=== PATIENT | male | born 1955 | race African-American/Black ===

== ENCOUNTER → 2019-06-27 | Outpatient (CLI) | payer BC | LOC: ULTRA 08:02 | DX: I70.203 Unspecified atherosclerosis of native arteries of extremities, bilateral legs (principal) ==

== ENCOUNTER → 2019-07-03 | Outpatient (CLI) | payer BC | LOC: SJCVCIMAG 09:41 | DX: M79.604 Pain in right leg (principal); M79.605 Pain in left leg; I73.9 Peripheral vascular disease, unspecified ==

== ENCOUNTER 2019-07-10 08:39 | Emergency (ER) | payer BC ==
[~2019-07-10] VITALS: Ht 180.3 cm; Wt 115.2 kg
[~2019-07-10 08:39] MED LIST: CYMBALTA60 MG PO; FLEXERIL PO; GRALISE600 MG PO; LISINOPRIL2.5 MG PO; PROAIR HFA8.5 GM INH; TRAZODONE 150150 M1 PO; WELLBUTRIN 100100 MG PO
[2019-07-10 08:47] VITALS: BP 120/68
--- NOTE | 2019-07-10 08:50 | NUR ---
PT PLACED ON 2L NC- SATS MID 90'S
[2019-07-10] MEDS ORDERED: EZALLOR SPRINKL10 MG PO (08:54)
[2019-07-10 09:20] LABS: URINE BILIRUBIN NEGATIVE (Negative); URINE BLOOD NEGATIVE (Negative); URINE CLARITY CLEAR; URINE COLOR YELLOW; URINE GLUCOSE-RANDOM* NEGATIVE (Negative); URINE KETONES NEGATIVE (Negative); URINE LEUKOCYTES-REFLEX NEGATIVE (Negative); URINE NITRITE-REFLEX NEGATIVE (Negative); URINE PROTEIN (DIPSTICK) NEGATIVE (Negative); URINE SPECIFIC GRAVITY 1.015 (1.005-1.035); URINE UROBILINOGEN 0.2 E.U./dl (0.2-1.0)
[2019-07-10 10:10] LABS: ABSOLUTE NEUTROPHILS 3.3 thou/uL (1.4-8.2); BASOPHILS 0.7 % (0.0-2.0); EOSINOPHILS 1.5 % (0.0-3.0); HEMATOCRIT 43.7 % (42.0-52.0); HEMOGLOBIN 14.7 gm/dL (14.0-18.0); LYMPHOCYTES 34.7 % (24.0-44.0); MCH 28.2 pg (26.0-34.0); MCHC 33.6 g/dL (28.0-37.0); MCV 84.2 fL (80.0-100.0); MONOCYTES 7.7 % (1.0-8.0); PLATELET COUNT 174 thou/uL (150-400); POLYS 55.4 % (36.0-66.0); RDW 15.6 % (10.5-14.5); WBC 5.9 thou/uL (4.0-11.0)
[2019-07-10 10:18] LABS: CALCIUM 8.8 mg/dL (8.5-10.1); CREATININE 1.1 mg/dL (0.7-1.3); POTASSIUM 4.4 mmol/L (3.5-5.1)
[2019-07-10 10:46] VITALS: BP 136/71
[2019-07-10 10:50] LABS: CALCIUM 8.5 mg/dL (8.5-10.1); CREATININE 1.1 mg/dL (0.7-1.3); POTASSIUM 4.3 mmol/L (3.5-5.1)
--- NOTE | 2019-07-10 11:05 | NUR ---
WAITING ON REPEAT BMP PRIOR TO CALLING REPORT
[2019-07-10 11:49] LABS: CALCIUM 8.9 mg/dL (8.5-10.1); CREATININE 1.1 mg/dL (0.7-1.3); POTASSIUM 4.2 mmol/L (3.5-5.1)
[2019-07-10 12:27] VITALS: BP 121/81
--- NOTE | 2019-07-10 12:34 | EKG ---
[facility] [place] [address] ELECTROCARDIOGRAM REPORT Name: SUNG PEARCE Room #: 170-9 ADM IN M.R.#: [id number] Admission: 07/10/19 Attend Phys: Kaila Mays MD Discharge: Date of : 57 Report #: [id number] THIS REPORT FOR: cc: Rafiq Walker MD, Michael D. MD Lammoglia, Francisco J. MD ~ THIS REPORT FOR: //name// [facility] ED Test Date: 2019-07-10 Test Time: 09:16:36 Pat Name: SUNG PEARCE Department: Room: 170 Gender: M Fish Agent: FREDDIE : 1955 Requested By: Ernestina Cespedes Order Number: [id number] MD: Angelo Markham Measurements Intervals [place] Rate: 97 P: 31 NE: 158 QRS: 12 QRSD: 79 T: QT: 329 QTc: 418 Interpretive Statements Sinus rhythm Nonspecific ST-T wave changes No previous ECG available for comparison Electronically Signed On 07-10-2019 12:15:20 CLASSIFICATIONS OFFICER CC/CM by Angelo Markham [email or web address] <ELECTRONICALLY SIGNED> By: Angelo Markham MD 07/10/19 1215 5 5 Angelo Markham MD /EPI
== END 2019-07-10 12:45 | disposition home or self-care (01) ==
LOC: ER 08:39 → EROBS 10:16
PROVIDERS: Emergency Medicine Emergency Medical Services; Hospitalist; Nurse Practitioner
DX: E87.1 Hypo-osmolality and hyponatremia (principal); R41.82 Altered mental status, unspecified; R41.0 Disorientation, unspecified; J45.909 Unspecified asthma, uncomplicated; E78.5 Hyperlipidemia, unspecified; I10 Essential (primary) hypertension; Z96.659 Presence of unspecified artificial knee joint; Z88.6 Allergy status to analgesic agent

== ENCOUNTER → 2019-08-02 | Outpatient (CLI) | payer BC ==
[~2019-08-02] VITALS: Ht 177.8 cm; Wt 114.3 kg
[~2019-08-02] MED LIST changes: +EZALLOR SPRINKL10 MG PO
[2019-08-02 07:39] VITALS: BP 128/79
[2019-08-02 08:01] LABS: HEMATOCRIT 44.5 % (42.0-52.0); HEMOGLOBIN 14.8 gm/dL (14.0-18.0); MCHC 33.3 g/dL (28.0-37.0); MCV 84.1 fL (80.0-100.0); RBC 5.29 mil/uL (4.50-6.00); RDW 15.8 % (10.5-14.5); WBC 5.5 thou/uL (4.0-11.0)
[2019-08-02 08:09] LABS: CALCIUM 8.9 mg/dL (8.5-10.1); CREATININE 1.3 mg/dL (0.7-1.3); POTASSIUM 4.3 mmol/L (3.5-5.1)
== END | disposition home or self-care (01) ==
LOC: CATH 07:15
PROVIDERS: Nuclear Medicine Nuclear Cardiology
DX: I73.9 Peripheral vascular disease, unspecified (principal); I70.1 Atherosclerosis of renal artery; I10 Essential (primary) hypertension; E78.5 Hyperlipidemia, unspecified; J45.909 Unspecified asthma, uncomplicated; G47.33 Obstructive sleep apnea (adult) (pediatric); Z98.890 Other specified postprocedural states; Z79.899 Other long term (current) drug therapy; Z96.653 Presence of artificial knee joint, bilateral; Z88.8 Allergy status to other drugs, medicaments and biological substances

== ENCOUNTER 2019-08-13 11:49 | Outpatient (CLI) | payer BC ==
[~2019-08-13] VITALS: Ht 177.8 cm; Wt 119.7 kg
[2019-08-13] VITALS (12 sets, daily range): BP systolic 100–146; BP diastolic 56–86
[2019-08-13 12:39] LABS: CALCIUM 9.4 mg/dL (8.5-10.1); POTASSIUM 4.4 mmol/L (3.5-5.1)
--- NOTE | 2019-08-13 17:30 | NUR ---
XAVIER STEINERIP STOPPED AT 1705, BP 117/70.
--- NOTE | 2019-08-13 17:31 | NUR ---
DR BOWLES NOTIFIED OF PT BP AND CARDENE BEING STOPPED. INSTRUCTED TO KEEP CARDENE ON EMAR AND TO RESTART IF BP GETS ABOVE 150 SYSTOLIC. TEOFILO JENSEN NOTIFIED OF THIS.
--- NOTE | 2019-08-13 19:59 | NUR ---
ASSUMMED PT CARE AT APPROXIMATELY 1730. PT A&O X4. ASSESSMENT CHARTED. FALL PRECAUTIONS IN PLACE. PT DENIES HAVING CHEST PAIN. PT DENIES HAVING SOB. PT STATED HE HAD CHRONIC PAIN. PT RECIEVED ANALGESICS. PT STATED ANALGESICS HELPED RELIEVE PAIN. POST CATH/RUN OFF. L GROIN C/D/I. NO HEMATOMA. PT VITAL SIGNS STABLE. DR. BOWLES ORDERED PT TO RESUME NICARDIPINE DRIP IF SYSTOLIC >140. INFORMED FINAL ASSEMBLY AND PACKING SUPERVISOR MANINDER DICKENS STATED SHE WOULD HOLD AN ICU BED IF PT NEEDED TO RESUME NICARDIPINE. INFORMED LAB ASSOCIATE RN, LAB ASSOCIATE RN STATED UNDERSTANDING AND DENIED HAVING FURTHER QUESTIONS. EDUCATED PT ABOUT POC. PT STATED UNDERSTANDING AND DENIED HAVING FURTHER CONCERNS.
[2019-08-14 00:21] VITALS: BP 141/67
[2019-08-14 04:45] VITALS: BP 141/77
--- NOTE | 2019-08-14 05:36 | NUR ---
ASSUMED PT CARE AT 1900. PT IS ALERT AND ORIENTED. NO SIGN OF DISTRESS NOTED IN PT. LEFT GROIN SITE IS INTACT. NO SIGN OF BRUISING OR BLEEDING NOTED. VERBALIZES PAIN. ASSESSMENT COMPLETED AND DOCUMETED. VITAL SIGNS STABLE. SCHEDULED MEDS ADMINISTERED TO PT. CONTINUE TO MONITOR PATIENT. DENIES ANY NEEDS AT THIS TIME.
[2019-08-14 06:21] LABS: CALCIUM 9.1 mg/dL (8.5-10.1); CREATININE 1.1 mg/dL (0.7-1.3); POTASSIUM 3.9 mmol/L (3.5-5.1)
[2019-08-14 06:25] LABS: HEMATOCRIT 41.4 % (42.0-52.0); HEMOGLOBIN 13.9 gm/dL (14.0-18.0); MCH 28.2 pg (26.0-34.0); MCHC 33.7 g/dL (28.0-37.0); MCV 83.7 fL (80.0-100.0); RBC 4.95 mil/uL (4.50-6.00); RDW 15.7 % (10.5-14.5); WBC 5.3 thou/uL (4.0-11.0)
[2019-08-14 07:14] VITALS: BP 108/88
[2019-08-14] MEDS ORDERED: CLOPIDOGREL75 MG PO (07:46)
[2019-08-14] MEDS ORDERED: ASPIR 8181 MG PO (07:46)
[2019-08-14 08:22] VITALS: BP 108/88
--- NOTE | 2019-08-14 09:24 | NUR ---
REPORT RECEIVED FROM MIKEY CARRASCO, REVIEWED POC WITH PT DURING BEDSIDE REPORT AT 0715. ELIZABETH, PT ASSESSED AT 0845, REVIEWED AND SIGNED ALL DISCHARGE PAPERWORK, PT VERBALIZED UNDERSTANDING, HAS PRESCRIPTIONS, TO MEET PT AT 1100 AT MAIN ENTRANCE TO GO HOME. IV REMOVED, TELEMETRY REMOVED, PT SHOWERED, HAS ALL BELONGINGS, WILL VEHICLE UPHOLSTERER PHARMACY MEDS ON THE WAY OUT. WILL MONITOR UNTIL THEN.
== END 2019-08-14 11:16 | disposition home or self-care (01) ==
LOC: CATH 11:49 → 2N 17:26 → CATH 21:11
PROVIDERS: Nuclear Medicine Nuclear Cardiology; Nurse Practitioner
DX: I70.211 Atherosclerosis of native arteries of extremities with intermittent claudication, right leg (principal); I10 Essential (primary) hypertension; J45.909 Unspecified asthma, uncomplicated; E78.5 Hyperlipidemia, unspecified; G47.33 Obstructive sleep apnea (adult) (pediatric); Z98.890 Other specified postprocedural states; Z79.899 Other long term (current) drug therapy; Z88.8 Allergy status to other drugs, medicaments and biological substances; Z96.659 Presence of unspecified artificial knee joint
CPT/HCPCS: 10081

== ENCOUNTER → 2019-09-02 | Outpatient (CLI) | payer BC ==
[~2019-09-02] MED LIST changes: +ALLEGRA ALLERG180 MG PO; +ASPIR 8181 MG PO; +ASPIRIN EC81 M1 PO; +CLOPIDOGREL75 MG PO; +CLOTRIMAZOLE-BE15 GM TOP; +DULERA 200 MCG/13 GM INH; +EFFIENT10 MG PO; +FENOFIBRATE160 MG PO; +FLOMAX0.4 MG PO; +FLONASE 0.05%50 MCG NARES; +GLUCOPHAGE XR750 MG PO; +GLUCOPHAGE1000 MG PO; +HUMALOG100 UNIT/1 SUBQ; +LANTUS SUBQ; +LIPITOR10 MG PO; +LISINOPRIL10 MG PO; +METFORMIN HCL1000 MG PO; +METOPROLOL SUCC50 MG PO; +MIRALAX17 GM PO; +NEURONTIN 400400 M1 PO; +NORCO 5-325 TA1 EAC1 PO; +OLANZAPINE10 M1 PO; +ROSUVASTATIN CA10 MG PO; +SENNA-TIME S T1 EACH PO; +TOPROL XL25 MG PO; +TRADJENTA5 MG PO; +TRIAMTERENE-HC1 EAC3 PO; +TRIAMTERENE/HCT1 CA1 PO; +VIAGRA100 MG PO
== END ==
LOC: SJCVCIMAG 09:40
PROVIDERS: ATTEND Internal Medicine Cardiovascular Disease
DX: Z01.810 Encounter for preprocedural cardiovascular examination (principal); I10 Essential (primary) hypertension; I73.9 Peripheral vascular disease, unspecified

== ENCOUNTER 2019-09-06 06:35 | Observation (INO) | payer BC ==
[~2019-09-06] VITALS: Ht 180.3 cm; Wt 113.9 kg
[2019-09-06] VITALS (11 sets, daily range): BP systolic 142–168; BP diastolic 94–129
--- NOTE | ~2019-09-06 | D ---
[facility] [place] [address] DISCHARGE SUMMARY Name: SUNG PEARCE Room #: 210-P [facility] M.R.#: [id number] Admission: 09/06/19 Attend Phys: Robert Phillips MD, Discharge: Date of : 57 Report #: [id number] THIS REPORT FOR: cc: Rafiq Walker MD, Michael D. MD ~ THIS REPORT FOR: //name// CC: [facility] Con[facility] COURSE: The patient is a 64-year-old male who was admitted for an abnormal nuclear stress test suggesting inferior wall ischemia. This is in anticipation of upcoming left fem-pop surgery for a nonhealing left foot wound. The right SFA was intervened on by Dr. Moss last week. Subsequently, went to the Catheterization Lab and had successful PTCA stent placement to the distal RCA, which was a codominant vessel. It was subtotalled the good result with a 2.25 stent, postdilated up to 2.4 mm, this is an Ulisses drug-eluting stent placed. The patient tolerated it well without any hemodynamic compromise. His EKG is normal this morning. He feels well. In fact, he states he feels better, less short of breath. There is recent data that we could continue dual antiplatelet therapy for 1 month and then anticipate surgery to occur a week or 2 after that off of the dual antiplatelet therapy. We would like to continue with aspirin for the surgery; however, with the stent. He is up and ambulating slowly at his baseline. His creatinine is 1.1. His potassium is 3.9. Troponin is less than 0.06. H and H is 14.9 and 43.9. He will be discharged home on aspirin and generic Effient, prasugrel 10 mg, bupropion 100, albuterol, Flexeril, gabapentin, lisinopril 20 mg, trazodone 150 mg at night. We will add Toprol 50 for some borderline sinus tachycardia and atorvastatin 40 mg. DISCHARGE DIAGNOSES: 1. Coronary artery disease with successful stent placement to the codominant right coronary artery, moderate left-sided disease, no intervention. 2. Peripheral vascular disease with status post right SFA stent and will need left fem-pop surgery for nonhealing left foot wound. 3. Hypertension. 4. Hypercholesterolemia. 5. Degenerative joint disease. 6. Obstructive sleep apnea. DISCHARGE INSTRUCTIONS: No lifting for 48 hours. No lying in tub, Jacuzzi, or elizondo for a week. Low-fat, low-sodium, low-cholesterol diet. Followup will be arranged with Dr. Sanchez to schedule peripheral bypass surgery and myself and Dr. Moss in 3 months. We will interrupt dual antiplatelet therapy after 30 days for the surgery and then reinitiate. Surgery should be performed on at least a baby aspirin. [address] [address] DISCHARGE SUMMARY Name: SUNG PEARCE Room #: 210-P [facility] Alley Maxwell#: [id number] Admission: 09/06/19 Attend Phys: Robert Phillips MD, Discharge: Date of : 57 Report #: [id number] Thank you for asking me to assist in the care of this patient. By: 0840 0910 /nt
[~2019-09-06 06:35] MED LIST changes: -ALLEGRA ALLERG180 MG PO; -ASPIRIN EC81 M1 PO; -CLOTRIMAZOLE-BE15 GM TOP; -DULERA 200 MCG/13 GM INH; -EFFIENT10 MG PO; -FENOFIBRATE160 MG PO; -FLOMAX0.4 MG PO; -FLONASE 0.05%50 MCG NARES; -GLUCOPHAGE XR750 MG PO; -GLUCOPHAGE1000 MG PO; -HUMALOG100 UNIT/1 SUBQ; -LANTUS SUBQ; -LIPITOR10 MG PO; -LISINOPRIL10 MG PO; -METFORMIN HCL1000 MG PO; -METOPROLOL SUCC50 MG PO; -MIRALAX17 GM PO; -NEURONTIN 400400 M1 PO; -NORCO 5-325 TA1 EAC1 PO; -OLANZAPINE10 M1 PO; -ROSUVASTATIN CA10 MG PO; -SENNA-TIME S T1 EACH PO; -TOPROL XL25 MG PO; -TRADJENTA5 MG PO; -TRIAMTERENE-HC1 EAC3 PO; -TRIAMTERENE/HCT1 CA1 PO; -VIAGRA100 MG PO
[2019-09-06] MEDS ORDERED: TRIAMTERENE/HCT1 CA1 PO (07:36)
[2019-09-06] MEDS ORDERED: FLOMAX0.4 MG PO ×2 (07:37)
[2019-09-06] MEDS ORDERED: ALLEGRA ALLERG180 MG PO (07:38)
[2019-09-06] MEDS ORDERED: VIAGRA100 MG PO (07:38)
[2019-09-06] MEDS ORDERED: FLONASE 0.05%50 MCG NARES (07:39)
[2019-09-06] MEDS ORDERED: LIPITOR10 MG PO (07:40)
[2019-09-06 07:48] LABS: HEMATOCRIT 41.7 % (42.0-52.0); HEMOGLOBIN 14.1 gm/dL (14.0-18.0); MCH 27.7 pg (26.0-34.0); MCHC 33.8 g/dL (28.0-37.0); MCV 81.9 fL (80.0-100.0); RBC 5.09 mil/uL (4.50-6.00); RDW 16.3 % (10.5-14.5); WBC 7.5 thou/uL (4.0-11.0)
[2019-09-06 07:52] LABS: CALCIUM 9.3 mg/dL (8.5-10.1); CREATININE 1.3 mg/dL (0.7-1.3); POTASSIUM 3.9 mmol/L (3.5-5.1)
--- NOTE | 2019-09-06 08:42 | EKG ---
[facility] [place] [address] ELECTROCARDIOGRAM REPORT Name: SUNG PEARCE Room #: [facility]..#: [id number] Admission: 09/06/19 Attend Phys: Robert Phillips MD, Discharge: Date of : 57 Report #: [id number] THIS REPORT FOR: cc: Rafiq Walker MD, Michael D. MD Couchonnal, Luis F. MD ~ THIS REPORT FOR: //name// [facility] Test Date: 2019-09-06 Test Time: 07:04:55 Pat Name: SUNG PEARCE Department: Room: Gender: Rn Field: [facility] : 1955 Requested By: Robert Phillips Order Number: [id number] MD: Ryan Mcrae Measurements Intervals [place] Rate: 96 P: 63 [place]: 179 QRS: 19 QRSD: 74 T: 44 QT: 340 QTc: 430 Interpretive Statements Sinus rhythm Left atrial enlargement Compared to ECG 07/10/2019 09:16:36 Atrial abnormality now present ST (T wave) deviation no longer present Electronically Signed On 09-06-2019 8:40:59 CDT by Ryan Mcrae [email or web address] <ELECTRONICALLY SIGNED> By: Ryan Mcrae MD 09/06/1940 3 3 Ryan Mcrae MD /EPI
--- NOTE | 2019-09-06 16:17 | CATHLAB ---
[facility] [place] [address] INVASIVE PROCEDURE REPORT Name: SUNG PEARCE Room #: 210-P ADM Alley Maxwell#: [id number] Admission: 09/06/19 Attend Phys: Robert Phillips MD, Discharge: Date of : 57 Report #: [id number] THIS REPORT FOR: cc: Rafiq Walker MD, Michael D. MD Mancuso, Gerald M. MD [facility] ~ APPROVED REPORT Study performed: 09/06/2019 08:23:00 Patient Details Patient Status: Out-Patient Room #: The patient is a 64 year-old male Event Personnel Robert Phillips Awning Maker, Radha Robledo RN RN, Nolan Sorensen RTR Monitor, Lavinia Swanson RTR Scrub Procedures Performed Art Access - R femoral artery* Left Heart Cath w/or w/o Coronaries 1506248 [facility] [address] Place w/wo Plasty Single RCA 987972 25426 Initial Mod Sed Same Phys/QHP Gr5y 342489 65848 Mod Sed Same Phys/QHP Ea 308182 Indication Chest pain Procedure Narrative The patient was brought electively to the Cardiac Catheterization Laboratory and was prepped and draped in a sterile manner. The Right Groin^ was infiltrated with 1% Lidocaine subcutaneous anesthesia. A PINNACLE 6FR Sheath #[id number] sheath was inserted into the RFA^. Coronary angiography was performed using coronary diagnostic catheters. The right coronary system was accessed and visualized with a JR4 catheter. The left coronary system was accessed and visualized with a JL4 catheter. The left ventricle was accessed and visualized with a PIGTAIL catheter. Closure device was deployed with a Fr MYNXGRIP 6/7F #[id number]. The patient tolerated the procedure well and there were no complications associated with the procedure. There was no hematoma. Intraoperative Conscious Sedation Sedation start time: 8:55 Case end Time: 9:58 [facility] [address] [place] [address] INVASIVE PROCEDURE REPORT Name: PEARCESUNG Room #: 210-P [facility] IN M.R.#: [id number] Admission: 09/06/19 Attend Phys: Robert Phillips, Discharge: Date of : 57 Report #: [id number] Fentanyl 100 mcg Versed 1 mg Fluoro Time: 6.13 minutes Dose: DAP 8656.70 cGycm2 1061 mGy Contrast Type and Amount: Omnipaque 120 ml Hemodynamics The aortic pressure is 175/102 mmHg with a mean of 133 mmHg. The left ventricular pressure is 167/15 mmHg with a mean of mmHg. The left ventricular end diastolic pressure is 29 mmHg. PCI Technique Lesion Percutaneous coronary intervention was performed on the mistal right coronary artery. A LAUNCHER 6FR JR 4 #[id number] Guide Catheter was used to engage the DISTAL RCA ostium. A Luge Wire .014 x 182CM #[id number] Interventional Guidewire was used to cross the lesion. BALLOON DILATION A Balloon catheter Sprinter OTW 2.25 x 12 #[id number] was inserted and inflated up to 5.00atm for 21seconds. Additional Inflation: 8.00atm for 27seconds. STENT DEPLOYMENT A stent RESOLUTE LISY RX 2.25 X 12 #[id number] was inserted and inflated up to 12.00atm for 37seconds. Additional Inflation: 16.00atm for 28seconds. Conclusion #1. Successful PTCA stent of the distal RCA lesion 95% to 0% with placement of a 2.25 x 12 resolute lisy drug-eluting stent LINNETTE grade III flow #2 mild ostial left main disease with calcification not occlusive giving rise to LAD and circumflex #3 the LAD extends around the apex mild proximal calcification diffusely diseased no occlusive disease moderate stenosis at the apex. #4 circumflex OM also proximal calcification with no significant occlusive disease it is anatomically nondominant but it is moderate in size and distribution. There is a mid OM lesion of 50% #5 normal left ventricular size and systolic function EF 55% Recommendations and plan: Continue aggressive risk factor [facility] [address] [place] [address] INVASIVE PROCEDURE REPORT Name: SUNG PEARCE Room #: 210-P [facility] IN M.R.#: [id number] Admission: 09/06/19 Attend Phys: Robert Phillips, Discharge: Date of : 57 Report #: [id number] modification. Dual antiplatelet therapy initiated. Transferred to [facility] in stable condition. <ELECTRONICALLY SIGNED> By: Robert Phillips MD, FACC 09/06/191615 15 15 Robert Phillips MD, FACC /INF
--- NOTE | 2019-09-06 17:58 | NUR ---
PT CARE ASSUMED APPROXIMATELY 1215. PT ASSESSMENTS CHARTED. PT MEDICATION CHARTED. POST CATH R KEISHA. R GROIN STENT, SOFT C/D/I. PT UP WITH CANE. PT L PINKY TOE MISSING NAIL.
[2019-09-07 00:15] VITALS: BP 138/88
[2019-09-07 04:31] LABS: HEMATOCRIT 43.9 % (42.0-52.0); HEMOGLOBIN 14.9 gm/dL (14.0-18.0); MCH 28.1 pg (26.0-34.0); MCHC 33.9 g/dL (28.0-37.0); MCV 82.8 fL (80.0-100.0); RBC 5.31 mil/uL (4.50-6.00); RDW 16.4 % (10.5-14.5); WBC 6.5 thou/uL (4.0-11.0)
[2019-09-07 04:43] LABS: ALBUMIN 3.4 g/dL (3.4-5.0); ANION GAP 8 mmol/L (7-16); BUN 19 mg/dL (7-18); CALCIUM 8.8 mg/dL (8.5-10.1); CHLORIDE 101 mmol/L (98-107); CO2 27 mmol/L (21-32); CREATININE 1.1 mg/dL (0.7-1.3); GLUCOSE 185 mg/dL (74-106); POTASSIUM 3.9 mmol/L (3.5-5.1); SGOT 39 U/L (15-37); SGPT 70 U/L (30-65); SODIUM 136 mmol/L (136-145); TOTAL BILIRUBIN 0.5 mg/dL (<0.1-1.0); TOTAL PROTEIN 6.7 g/dL (6.4-8.2); TROPONIN-I <0.06 ng/mL (<0.06)
[2019-09-07 04:45] VITALS: BP 142/69
--- NOTE | 2019-09-07 05:03 | NUR ---
ASSESSMENTS CHARTED. MEDS CHARTED GIVEN. PATIENT RESTING IN BED DURING SHIFT. UP TO THE BATHROOM WITH STANDBY ASSIST AND USING HIS CANE. SINUS TACH, SINUS RHYTHM ON TELEMETRY, ON ROOM AIR WHILE AWAKE, ON BIPAP AT NIGHT. PATIENT WENT TO TUBE INSPECTOR YESTERDAY, RIGHT GROIN SITE IS INTACT AND SOFT. PATIENT C/O LEFT TOE PAIN. TOE IS MISSING ITS NAIL, SWOLLEN AND BRUISED. BILATERAL LEGS AND FEED ARE SWOLLEN WITH PITTING EDEMA. FALL PRECAUTIONS IN PLACE.
[2019-09-07 08:00] VITALS: BP 140/86
[2019-09-07] MEDS ORDERED: EFFIENT10 MG PO (08:37)
[2019-09-07] MEDS ORDERED: METOPROLOL SUCC50 MG PO (08:37)
[2019-09-07 10:34] VITALS: BP 140/86
--- NOTE | 2019-09-07 11:18 | NUR ---
ASSUMED CARE PT SHIFT CHANGE. ASSESSMENT CHARTED.MEDS GIVEN PER JUL. PT ALERT AND ORIENTED.VSS. C/O PAIN-TYLENOL GIVEN. PT UP SBA TOLERATING WELL. O2 SATS WNL ON ROOM AIR. RIGHT GROIN SITE CDI, NO HEMATOMA. DC ORDERS ACKNOWLEDGED AND IMPLEMENTED. PAPERWORK DISCUSSED WITH PT. COMMUNICATES UNDERSTANDING. IV REMOVED. TELE REMOVED. PT LEFT WITH ALL BELONGINGS AT APPROX 1118
--- NOTE | 2019-09-08 13:04 | EKG ---
[facility] [place] [address] ELECTROCARDIOGRAM REPORT Name: SUNG PEARCE Room #: 210-[facility] M.R.#: [id number] Admission: 09/06/19 Attend Phys: Robert Phillips MD, Discharge: 09/07/19 Date of : 57 Report #: [id number] THIS REPORT FOR: cc: Rafiq Walker MD, Michael D. MD Couchonnal, Luis F. MD ~ THIS REPORT FOR: //name// [facility] Test Date: 2019-09-07 Test Time: 07:42:14 Pat Name: SUNG PEARCE Department: Room: 210 P Gender: M Intermediate Accountant: Tc CHARLES : 1955 Requested By: Brenda Mendosa Order Number: [id number] MD: Ryan Mcrae Measurements Intervals [place] Rate: 102 P: 57 ME: 158 QRS: 22 QRSD: 75 T: 51 QT: 335 QTc: 437 Interpretive Statements Sinus tachycardia Atrial premature complex Left atrial enlargement Compared to ECG 09/06/2019 07:04:55 Atrial premature complex(es) now present Sinus rhythm no longer present Electronically Signed On 09-08-2019 13:03:01 CDT by Ryan Mcrae [email or web address] <ELECTRONICALLY SIGNED> By: Ryan Mcrae MD 09/08/19 1303 0742 Ryan Mcrae MD /EPI
== END 2019-09-07 11:18 | disposition home or self-care (01) ==
LOC: CATH 06:35 → 2N 12:23 → CATH 13:46 → 2N 09-07 11:18
PROVIDERS: Nurse Practitioner Adult Health; ADMIT Internal Medicine Cardiovascular Disease
DX: I25.10 Atherosclerotic heart disease of native coronary artery without angina pectoris (principal); I73.9 Peripheral vascular disease, unspecified; I10 Essential (primary) hypertension; E78.00 Pure hypercholesterolemia, unspecified; M19.90 Unspecified osteoarthritis, unspecified site; G47.33 Obstructive sleep apnea (adult) (pediatric)

== ENCOUNTER → 2019-09-26 | Outpatient (CLI) | payer BC ==
[~2019-09-26] MED LIST changes: +ALLEGRA ALLERG180 MG PO; +ASPIRIN EC81 M1 PO; +DULERA 200 MCG/13 GM INH; +EFFIENT10 MG PO; +FENOFIBRATE160 MG PO; +FLOMAX0.4 MG PO; +FLONASE 0.05%50 MCG NARES; +LIPITOR10 MG PO; +LISINOPRIL10 MG PO; +METOPROLOL SUCC50 MG PO; +NEURONTIN 400400 M1 PO; +NORCO 5-325 TA1 EAC1 PO; +OLANZAPINE10 M1 PO; +ROSUVASTATIN CA10 MG PO; +TRIAMTERENE-HC1 EAC3 PO; +TRIAMTERENE/HCT1 CA1 PO; +VIAGRA100 MG PO
== END ==
LOC: ULTRA 09:10
DX: I73.9 Peripheral vascular disease, unspecified (principal)

== ENCOUNTER 2019-10-08 06:47 | Inpatient (IN) | payer OTHER, BC ==
[2019-09-26 11:23] LABS: ABSOLUTE NEUTROPHILS 2.3 thou/uL (1.4-8.2); BASOPHILS 0.9 % (0.0-2.0); EOSINOPHILS 2.2 % (0.0-3.0); HEMOGLOBIN 15.4 gm/dL (14.0-18.0); LYMPHOCYTES 31.3 % (24.0-44.0); MCH 28.5 pg (26.0-34.0); MCV 81.3 fL (80.0-100.0); MONOCYTES 8.4 % (1.0-8.0); PLATELET COUNT 154 thou/uL (150-400); POLYS 57.2 % (36.0-66.0); RBC 5.41 mil/uL (4.50-6.00); WBC 4.1 thou/uL (4.0-11.0)
[2019-09-26 11:30] LABS: URINE BILIRUBIN NEGATIVE (Negative); URINE BLOOD NEGATIVE (Negative); URINE CLARITY CLEAR; URINE COLOR YELLOW; URINE GLUCOSE-RANDOM* 3+ (Negative); URINE KETONES NEGATIVE (Negative); URINE LEUKOCYTES-REFLEX NEGATIVE (Negative); URINE NITRITE-REFLEX NEGATIVE (Negative); URINE PROTEIN (DIPSTICK) NEGATIVE (Negative); URINE SPECIFIC GRAVITY <= 1.005 (1.005-1.035); URINE UROBILINOGEN 0.2 E.U./dl (0.2-1.0)
[2019-09-26 11:32] LABS: APTT 25.9 Seconds (24.5-32.8); PROTIME 10.6 Seconds (9.3-11.4)
[2019-09-26 11:36] LABS: ALBUMIN 3.8 g/dL (3.4-5.0); CALCIUM 8.2 mg/dL (8.5-10.1); CREATININE 1.7 mg/dL (0.7-1.3); POTASSIUM 4.5 mmol/L (3.5-5.1); TOTAL BILIRUBIN 0.6 mg/dL (<0.1-1.0)
--- NOTE | 2019-09-26 12:30 | EKG ---
[facility] [place] [address] ELECTROCARDIOGRAM REPORT Name: SUNG PEARCE Room #: PRE IN M.R.#: [id number] Admission: Attend Phys: Arun Sanchez MD Discharge: Date of : 57 Report #: [id number] THIS REPORT FOR: cc: Rafiq Walker MD, Michael D. MD Couchonnal,Ryan Segovia MD ~ THIS REPORT FOR: //name// [facility] Test Date: 2019-09-26 Test Time: 10:55:49 Pat Name: SUNG PEARCE Department: Room: Gender: Computer Graphic Artist: derek marti : 1955 Requested By: Arun Sanchez Order Number: [id number] MD: Ryan Mcrae Measurements Intervals [place] Rate: 106 P: 70 ME: 165 QRS: 20 QRSD: 81 T: 46 QT: 334 QTc: 444 Interpretive Statements Sinus tachycardia Left atrial enlargement Compared to ECG 09/07/2019 07:42:14 Atrial premature complex(es) no longer present Electronically Signed On 09-26-2019 12:28:20 CDT by Ryan Mcrae [email or web address] <ELECTRONICALLY SIGNED> By: Ryan Mcrae MD 09/26/19 1228 1055 1055 Ryan Mcrae MD /EPI
[2019-10-08] VITALS (14 sets, daily range): BP systolic 100–120; BP diastolic 47–70
[~2019-10-08] VITALS: Ht 180.3 cm; Wt 109.8 kg
[~2019-10-08 06:47] MED LIST changes: +GLUCOPHAGE1000 MG PO; +HUMALOG100 UNIT/1 SUBQ; +LANTUS SUBQ; +METFORMIN HCL1000 MG PO
[2019-10-08 07:42] LABS: CALCIUM 8.9 mg/dL (8.5-10.1); CREATININE 1.2 mg/dL (0.7-1.3); POTASSIUM 3.9 mmol/L (3.5-5.1)
[2019-10-08 15:58] LABS: HEMATOCRIT 31.6 % (42.0-52.0); HEMOGLOBIN 10.8 gm/dL (14.0-18.0); MCH 28.2 pg (26.0-34.0); MCHC 34.2 g/dL (28.0-37.0); MCV 82.4 fL (80.0-100.0); RBC 3.84 mil/uL (4.50-6.00); RDW 16.1 % (10.5-14.5); WBC 10.2 thou/uL (4.0-11.0)
[2019-10-08 16:06] LABS: CREATININE 1.3 mg/dL (0.7-1.3); POTASSIUM 4.1 mmol/L (3.5-5.1)
[2019-10-08 16:10] LABS: CALCIUM 6.9 mg/dL (8.5-10.1)
[2019-10-09] VITALS (20 sets, daily range): BP systolic 86–120; BP diastolic 42–68
[2019-10-09 05:15] LABS: HEMATOCRIT 26.7 % (42.0-52.0); HEMOGLOBIN 9.2 gm/dL (14.0-18.0); MCH 27.9 pg (26.0-34.0); MCHC 34.5 g/dL (28.0-37.0); MCV 80.8 fL (80.0-100.0); RBC 3.3 mil/uL (4.50-6.00); RDW 15.9 % (10.5-14.5); WBC 4.6 thou/uL (4.0-11.0)
[2019-10-09 05:42] LABS: ALBUMIN 2.5 g/dL (3.4-5.0); CALCIUM 7.2 mg/dL (8.5-10.1); POTASSIUM 3.6 mmol/L (3.5-5.1); TOTAL BILIRUBIN 0.4 mg/dL (<0.1-1.0); TOTAL PROTEIN 4.8 g/dL (6.4-8.2)
--- NOTE | 2019-10-09 08:08 | EKG ---
[facility] [place] [address] ELECTROCARDIOGRAM REPORT Name: SUNG PEARCE Room #: 249-P ADM IN M.R.#: [id number] Admission: 10/08/19 Attend Phys: Arun Sanchez MD Discharge: Date of : 57 Report #: [id number] THIS REPORT FOR: cc: Rafiq Walker MD, Michael D. MD Couchonnal, Luis F. MD ~ THIS REPORT FOR: //name// [facility] Test Date: 2019-10-09 Test Time: 07:52:47 Pat Name: SUNG PEARCE Department: Room: 249 P Gender: M [place]: [place] : 1955 Requested By: Brenda Mendosa Order Number: [id number] MD: Ryan Mcrae Measurements Intervals [place] Rate: 106 P: 71 [place]: 156 QRS: 14 QRSD: 75 T: 53 QT: 361 QTc: 480 Interpretive Statements Sinus tachycardia Borderline T wave abnormalities Borderline prolonged QT interval Compared to ECG 09/26/2019 10:55:49 T-wave abnormality now present Atrial abnormality no longer present Electronically Signed On 10-09-2019 8:06:54 CDT by Ryan Mcrae [email or web address] <ELECTRONICALLY SIGNED> By: Ryan Mcrae MD 10/09/19 0806 075 075 Ryan Mcrae MD /EPI
--- NOTE | 2019-10-09 17:05 | O ---
[facility] [place] [address] OPERATIVE REPORT Name: SUGN PEARCE Room #: 249-P [facility] IN M.R.#: [id number] Admission: 10/08/19 Attend Phys: Arun Sanchez MD Discharge: Date of : 57 Report #: [id number] THIS REPORT FOR: cc: Rafiq Walker MD,Rafiq Sanchez,Arun Bell MD ~ CC: Arun Walker DATE OF SERVICE: 10/08/2019 PREOPERATIVE DIAGNOSES: Lower extremity arterial occlusive disease, left superficial femoral artery occlusion. POSTOPERATIVE DIAGNOSIS: Lower extremity arterial occlusive disease, left superficial femoral artery occlusion. OPERATION PERFORMED: Left femoral to xmztx-kpj-orsp popliteal artery bypass with reversed autogenous greater saphenous vein and intraoperative arteriogram. SURGEON: Arun Sanchez MD LIBRARY SERVICES ASSISTANT: OSMANI Wright. ANESTHESIA: General. INDICATIONS: The patient is a 64-year-old with rest pain in the left foot. 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 The patient has diabetes mellitus, not well controlled. FINDINGS AND TECHNIQUE: After general anesthesia was established, an incision was made below the left knee to expose the greater saphenous vein. The incision was deepened to expose the upyfg-ehz-vfny popliteal artery. Another incision was made in the groin to expose the proximal end of the superficial femoral artery, femoral artery and deep femoral artery and saphenous vein. Saphenous vein was harvested through interrupted incisions and prepared for use as a conduit. Heparin was given. The reversed autogenous greater saphenous vein was sewn in end-to-side fashion to the left common femoral artery. The vein was brought through subcutaneous tunnels and the other end of the vein was sewn to the side of the below-knee popliteal artery. Flow was established through the graft. Flow and Doppler were tested. An intraoperative arteriogram was taken to show [facility] [address] [place] [address] OPERATIVE REPORT Name: SUNG PEARCE Room #: 249-P ADM IN M.R.#: [id number] Admission: 10/08/19 Attend Phys: Arun Sanchez MD Discharge: Date of : 57 Report #: [id number] us the course of the vein and to establish patency of the distal anastomosis. Once we were satisfied with the vein having repaired a twist in it, protamine was given to reverse the heparin. Drains were brought through separate stab wounds to drain the subcutaneous tunnel and the incisions were then closed in layers with Vicryl, nylon and clips for the leg incision and Vicryl and Monocryl for the groin. Prevena dressings were applied. The patient was taken to the recovery area in good condition. All counts reported as correct. <ELECTRONICALLY SIGNED> By: Arun Sanchez MD 10/09/19 1705 1536 1617 Arun Sanchez MD /nt
[2019-10-10] VITALS (31 sets, daily range): BP systolic 90–137; BP diastolic 36–81
[2019-10-10 07:21] LABS: CALCIUM 7.9 mg/dL (8.5-10.1); POTASSIUM 4.2 mmol/L (3.5-5.1)
[2019-10-11 00:45] VITALS: BP 125/55
[2019-10-11 04:07] LABS: GLYCOHEMOGLOBIN (HGB A1C) 12.1 % (4.8-5.6)
[2019-10-11 04:34] LABS: HEMATOCRIT 23.7 % (42.0-52.0); HEMOGLOBIN 8.2 gm/dL (14.0-18.0); MCHC 34.6 g/dL (28.0-37.0); RBC 2.92 mil/uL (4.50-6.00); WBC 4.4 thou/uL (4.0-11.0)
[2019-10-11 04:45] VITALS: BP 118/67
[2019-10-11 04:48] LABS: CALCIUM 7.8 mg/dL (8.5-10.1); MAGNESIUM 1.8 mg/dL (1.8-2.4); POTASSIUM 3.9 mmol/L (3.5-5.1)
[2019-10-11 07:35] VITALS: BP 107/67
[2019-10-11 09:40] VITALS: BP 107/67
[2019-10-11 11:45] VITALS: BP 102/60
[2019-10-11 13:04] LABS: URINE BILIRUBIN NEGATIVE (Negative); URINE BLOOD NEGATIVE (Negative); URINE CLARITY CLEAR; URINE COLOR YELLOW; URINE GLUCOSE-RANDOM* 3+ (Negative); URINE KETONES NEGATIVE (Negative); URINE LEUKOCYTES-REFLEX NEGATIVE (Negative); URINE NITRITE-REFLEX NEGATIVE (Negative); URINE PROTEIN (DIPSTICK) NEGATIVE (Negative); URINE SPECIFIC GRAVITY <= 1.005 (1.005-1.035); URINE UROBILINOGEN 0.2 E.U./dl (0.2-1.0)
[2019-10-11 16:05] VITALS: BP 115/65
== END 2019-10-11 18:30 | DRG 252 ==
LOC: TBA 06:47 → ICU 06:47 → PRE 09:42 → OR 09:48 → EDSTATUS 09:49 → PRE 09:51 → OR 11:04 → ICU 17:42 → 2N 10-10 19:11
PROVIDERS: Anesthesiology; Internal Medicine; Physician Assistant; Student in an Organized Health Care Education/Training Program; ADMIT Surgery Vascular Surgery
PROC: 041L0ZL Bypass Left Femoral Artery to Popliteal Artery, Open Approach (ICD-10-PCS; principal; 2019-10-08)
PROC: 5A09357 Assistance with Respiratory Ventilation, Less than 24 Consecutive Hours, Continuous Positive Airway Pressure (ICD-10-PCS; 2019-10-11)
DX: I77.9 Disorder of arteries and arterioles, unspecified (principal); E43 Unspecified severe protein-calorie malnutrition; D62 Acute posthemorrhagic anemia; E87.1 Hypo-osmolality and hyponatremia; I77.1 Stricture of artery; R00.0 Tachycardia, unspecified; I25.10 Atherosclerotic heart disease of native coronary artery without angina pectoris; E78.5 Hyperlipidemia, unspecified; M19.90 Unspecified osteoarthritis, unspecified site; G47.33 Obstructive sleep apnea (adult) (pediatric); Z96.653 Presence of artificial knee joint, bilateral; E83.51 Hypocalcemia; E11.51 Type 2 diabetes mellitus with diabetic peripheral angiopathy without gangrene; N40.0 Benign prostatic hyperplasia without lower urinary tract symptoms; E11.65 Type 2 diabetes mellitus with hyperglycemia; D69.6 Thrombocytopenia, unspecified; Z95.5 Presence of coronary angioplasty implant and graft; Z82.49 Family history of ischemic heart disease and other diseases of the circulatory system; Z88.6 Allergy status to analgesic agent; Z79.82 Long term (current) use of aspirin; Z79.899 Other long term (current) drug therapy
CPT/HCPCS: 10078; 10081; 10204; 10797; 47375; 48888; 50010; 50101; 50331; 50386; 50455; 50643; 50953; 51412; 51481; 52287; 56524; 56526; 56527; 56528; 56531; 56534; 56668; 56682; 56760; 57092; 57093; 57167; 57242; 62110; 62900; 65020; 65040; 70005

== ENCOUNTER 2019-10-11 16:16 | Inpatient (IN) | payer OTHER, BC ==
[~2019-10-11] VITALS: Ht 180.3 cm; Wt 111.6 kg
[2019-10-11 20:21] VITALS: BP 121/64
[2019-10-12 05:33] LABS: HEMATOCRIT 23.3 % (42.0-52.0); HEMOGLOBIN 8.1 gm/dL (14.0-18.0); MCH 28.1 pg (26.0-34.0); MCV 80.2 fL (80.0-100.0); RBC 2.9 mil/uL (4.50-6.00); RDW 16.3 % (10.5-14.5); WBC 4.1 thou/uL (4.0-11.0)
[2019-10-12 05:44] LABS: CALCIUM 8.1 mg/dL (8.5-10.1); CREATININE 0.9 mg/dL (0.7-1.3); POTASSIUM 3.8 mmol/L (3.5-5.1)
[2019-10-12 07:30] VITALS: BP 116/74
--- NOTE | 2019-10-12 09:07 | NUR ---
ASSUMED CARE AT 0700. PATIENT IS ALERT AND ORIENTED X4, BUT FORGETFUL AT TIMES. PATIENT RICO'S, TONNAGE COMPILATION CLERK ARE EQUAL. LUNGS ARE CLEAR AND DEMINISHED. ABD IS SOFT WITH BSX4. PATIETN HAS S.L. IN RIGHT FORARM. NO REDNESS OR SWELLING NOTED. PATIENT HAS WOUND VAC TO HIS LEFT LOWER LEG. FALL AND SAFETY PROTOCOLS IN PLACE. PATIENT TO GET ALL EVALS TODAY. WILL CONTINUE TO MONITER.
[2019-10-12 19:07] VITALS: BP 110/55
--- NOTE | 2019-10-12 23:10 | NUR ---
PT ALERT AND ORIENTED X 4, FORGETFUL. AMB TO BR WITH CANE AND ASSIST X 1 WITHOUT DIFFICULTY. WOUND VAC INTACT TO LEFT LEG. SEROSANGUINOUS DRAINAGE NOTED ON DRESSINGS ON LEFT LEG AND IN WOUND VAC CANNISTER. PT C/O PAIN IN HIS LEFT FOOT. HYDROCODONE GIVEN AT THE START OF THE SHIFT WITH PARTIAL PAIN RELIEF VERBALIZED. PT HAS NOT HAD A BM SINCE 10/08. LAXATIVES GIVEN ON DAY SHIFT. SENNA GIVEN AT HS. PT PASSING FLATUS. BED ALARM ON FOR SAFETY. PT CHECKED ON HOURLY ROUNDS.
[2019-10-13 07:30] VITALS: BP 109/71
--- NOTE | 2019-10-13 10:15 | NUR ---
ASSUMED CARE AT 0700. PATIENT IS ALERT AND ORIENTED X3, BUT FORGETFUL AT TIMES. PATIENT RICO, FINANCIAL ADVISER ARE EQUAL. LUNGS ARE CLEAR AND DEMINISHED. ABD IS SOFT WITH BSX4. NO BM YET . CONTINUES TO TAKE MIRALAX AND SENNA ORDERED. PASSING GAS. PATIENT IS INCONTINENT OF URINE, BUT USES THE URINAL ALSO. FALL AND SAFETY PROTOCOLS IN PLACE. C/O PAIN IN HIS LEFT LEG R/T FEM-POP BYPASS AND WOUND VAC TO THE LEFT LEG. PATIENT HAS S.L. IN HIS RIGHT F.A. PATIENT WAS MEDICATED WITH PRN PAIN MED AT 0630 BY NIGHT NURSE. CONTINUES TO PROGRESS TOWARDS D/C GOALS. S.L. IS PATENT AND INTACT IN HIS RIGHT WRIST. WILL CONTINUE TO MONITER.
[2019-10-13 19:42] VITALS: BP 113/60
--- NOTE | 2019-10-14 04:08 | NUR ---
PAIN IN LEFT HEEL MODERATED WITH ELEVATION, ICE, AND HYDROCODONE. UP TO TOILET WITH SBA AND HELP HOLDING WOUND CARE VAC UOT OF THE WAY.
[2019-10-14 07:43] VITALS: BP 107/71
--- NOTE | 2019-10-14 13:10 | NUR ---
Nutrition: pt received consult related to wound. Pt is S/P left fem pop bypass. PMH: CAD, HTN, HLD, PAD, DM. Pt eating very well, 100% of meals and glucerna supplements which pt would like to continue TID. Prior recent intentional weight loss of 10-15# documented as pt was trying to control BG. A1C 12.1. On combination insulin/oral agents for BG. Discussed nutrition for wound healing. Pt voiced understanding. If weight gain occurs, will decrease glucerna supplements. Follow for any education needs. Low risk.
--- NOTE | 2019-10-14 14:10 | NUR ---
chart review. cm visited with thea via phone call. intro to transition of care and team meeting. he is able to make his needs know. he reported " lives with , ranch style home. 4 steps to enter the home. has cane and cpap that he wears at bedtime. manage own medication and drives vehicle. independent."/thea. advanced hh is ok only if i need it.
--- NOTE | 2019-10-14 19:45 | NUR ---
ASSUMED CARE AT 0700. REPORTS SLEPT GOOD LAST NIGHT. HAS SOME LEAKING ON LLE DRESSING. DRESSING REINFORCED BY NIGHT NURSE. PATIENT IS ALERT AND ORIENTED X3, BUT FORGETFUL AT TIMES. REASSESSMENT PER CHART. LUNGS ARE CLEAR AND DIMINISHED. SAT ADEQUATE ON R. B/P 107/71, HR 104. PT IS ON LISINOPRIL AND HTCZ. MEDS GIVEN ORDERED. PT HAS BEEN TAKING THESE MEDS WITHOUT HAVING HYPOTENSIVE SYMPTOMS. WILL CONTINUE TO MONITOR. ABD IS SOFT WITH BSX4. CONTINUES TO TAKE MIRALAX AND SENNA ORDERED. HAD BM TODAY. PT UP WITH ASSIST, GB AND A CANE. DR. MARIAJOSE MUNOZ CAME AND CHANGED DRESSING ON LLE TODAY. C/O PAIN 9/10 IN HIS LEFT LEG R/T FEM-POP BYPASS AND PAIN DOWN TO 6/10 TOLERATE SCALE. AND WOUND VAC TO THE LEFT LEG. PATIENT HAS S.L. IN HIS RIGHT F.A REMOVED TODAY. FALL PRECAUTION IN PLACE, PT USES CALL LIGHT APPROPRIATELY. CONTINUES TO PROGRESS TOWARDS D/C GOALS. GAVE REPORT TO NIGHT NURSE TO CONTINUE TO MONITOR.
[2019-10-14 20:00] VITALS: BP 111/57
--- NOTE | 2019-10-15 06:30 | NUR ---
PAIN LEVEL 8-9 UNTIL HYDROCODONE GIVEN WHICH IMPROVES PAIN. WOUND VAC WORKING WELL UNTIL PATIENT STEPPED ON TUBING ON TRIP TO TOILET. TWO BM THIS SHIFT WHICH PATIENT DESCRIBES WATERY, BOTH TIMES I HAVE ASKED OR REMINDED PATIENT TO NOT FLUSH UNTIL A STAFF MEMBER SEES IT. LLE ELEVATED
[2019-10-15 07:30] VITALS: BP 103/66
[2019-10-15 08:04] VITALS: BP 103/66
--- NOTE | 2019-10-15 10:48 | NUR ---
vendor form, hh list choice given to bedside nurse to give to thea and place on pt chart. cm notified by hydroelectric plant structural engineer that pt own cpap is broken and needs assist getting it fixed. cm tried calling pt x2 no answer and will cont following as needed for dc needs.
--- NOTE | 2019-10-15 12:01 | HC ---
[facility] [place] [address] CONSULTATION Name: SUNG PEARCE Room #: 512-P [facility] IN M.R.#: [id number] Admission: 10/11/19 Attend Phys: Marcin Bowen MD Discharge: Date of : 57 Report #: [id number] THIS REPORT FOR: cc: Rafiq Walker MD, Michael D. MD Deutch,Dewey Kam. PhD ~ CC: Marcin Walker DATE OF SERVICE: 10/12/2019 NEUROBEHAVIORAL STATUS EXAMINATION ATTENDING PHYSICIAN: Marcin Bowen MD SEWING TRIMMER: Dewey Eason, PhD CLINICAL PRESENTATION: The patient is a 64-year-old -[place] male admitted to the rehab unit for comprehensive inpatient rehabilitation program. He was originally admitted to the [facility] on 10/08/2019 with a severe peripheral arterial disease. The patient underwent a left femoral to below-knee popliteal artery bypass with a reverse autogenous staff saphenous vein and intraoperative arteriogram. The patient has a history of coronary artery disease with a prior PCI to the right coronary artery and has been on aspirin. His assessment on the rehab unit is medical complexity with generalized debilitation, peripheral artery disease status post fem-pop bypass on 10/08/2019, coronary artery disease status post stenting on 09/20/2019; diabetes mellitus type 2, uncontrolled, previous A1c is 12.1; acute blood loss anemia, hypertension, hyperlipidemia and exogenous obesity. A complete description of his medical condition and history can be found in his medical record. Neuropsychological consultation was requested to provide assistance in the assessment of cognitive and emotional status and to provide recommendations and services. Prior to this most recent admission, the patient was living independently at home with his . The patient was vague in regard to the reason for his hospitalization. He reports a history of previous medical treatment, but not specific purpose for his hospitalization. It should be noted that the patient also had difficulty in identifying the number of his children. He stated that he had about 3 children. His responses were delayed and he appeared to require increased effort to respond when questioned. The patient is a high school graduate. He reports having been on disability because of low back pain. He had difficulty in [facility] [address] [place] [address] CONSULTATION Name: SUNG PEARCE Room #: 512-P 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 TECHNIQUES UTILIZED: Clinical interview, review of medical records, staff consultation and behavioral observation, mini mental status exam 2 standard version, clock drawing and verbal fluency assessment. EXAMINATION FINDINGS: The patient was alert and cooperative with the assessment. He presents with decreased verbal fluency with deficts in word finding and tangential speech typical of confabulation. The patient was very talkative most likely to organize his thoughts to articulate a specific response. He reports his symptoms to include difficulty with word finding, anxiety, and sleep disturbance. He does not report difficulty with memory, depression or appetite. There is no history of alcohol/drug abuse. Current use of an antidepressant has been helpful. His performance on the MMSE 2 brief version suggests mild impairment with a raw score of 13/16, which is a T score of 34 and percentile rank of 5. Performance on the MMSE 2 standard version was a raw score of 22 of 30, which is a T score of 28 and percentile rank of 1. Deficits are noted in immediate recall, attention/concentration and visual spatial construction. The patient was unable to copy a simple geometric design. The patient had difficulty with clock drawing and was inaccurate in his placement of hands at a specific time. Category fluency was in the low average range with a raw score of 23, T score of 41 and percentile rank of 18. Category fluency was extremely low with a raw score of 21 and a T score of 19, which is less than 1%. Overall, total fluency was a T score of 30, which is in the borderline range at the 2nd percentile. The patient is presenting with deficits in memory, sustained concentration and attention, visual spatial construction and verbal fluency. A mild degree of anxiety is suggested. He does not report a depressed mood, but has been treated for depression. DIAGNOSTIC IMPRESSION: Neurocognitive disorder, unspecified -- without behavior disorder -- extent to be determined, but likely in the moderate range. Unspecified depressive disorder with anxiety. RECOMMENDATIONS: The patient appears to be presenting with a neurocogntive disorder that has vascular features. However, medication with sedating features may be contributing to his presentation. Patient is also taking [address] [address] CONSULTATION Name: SUNG PEARCE Room #: 512-P ADM IN M.R.#: [id number] Admission: 10/11/19 Attend Phys: Marcin Bowen MD Discharge: Date of : 57 Report #: [id number] multiple medications for mood and behavior. A workup for neurodegenerative disorder is suggested. An outpatient neuropsychological assessment is recommended. Outpatient psychiatric consultation may also be of benefit. A family interview will be of benefit to clarify premorbid functioning. I was unable to contact familly at the time of my assessment. Recommended is assistance in the management of medication, finances and nutrition. Family education will be needed in regard to assisting in the management of his medical condition. Driving is a safety concern. Continued speech therapy to assist with compensatory strategies for memory, thought organization, visual spatial construction and attention and concentration. Thank you very much for allowing me to provide the consultation on this patient. <ELECTRONICALLY SIGNED> By: Dewey Eason, PhD 10/15/19 1201 [id number] 04 Dewey Eason, PhD /nt
--- NOTE | 2019-10-15 12:34 | HC ---
[facility] [place] [address] CONSULTATION Name: SUNG PEARCE Room #: 512-P ADM IN M.R.#: [id number] Admission: 10/11/19 Attend Phys: Marcin Bowen MD Discharge: Date of : 57 Report #: [id number] THIS REPORT FOR: cc: Rafiq Walker MD, Michael D. MD Al-Mubaslat, Ahmad MD ~ CC: Marcin Walker DATE OF SERVICE: 10/14/2019 ENDOCRINE CONSULTATION NOTE CONSULTING PHYSICIAN: Dr. Bowen. REASON FOR CONSULTATION: Uncontrolled type 2 diabetes mellitus. HISTORY OF PRESENT ILLNESS: This is a 64-year-old male patient whose medical background is significant for hypertension, hyperlipidemia as well as a background of coronary artery disease and peripheral arterial disease. The patient underwent a left femoral popliteal bypass surgery. As far as the patient recalls, he has never been diagnosed with type 2 diabetes mellitus in the past, but was found to be severely hyperglycemic about 2 weeks ago while in the hospital. Again, he does not recall having been told that he has hyperglycemia and is fairly certain he has not been on glycemic agents in the past. As noted above, the patient has significant history of peripheral arterial disease, status post right SFA stenosis, status post right SFA stenting and left SFA total occlusion as well as left femoral popliteal bypass surgery. Also, the patient is known to have CAD and is status post distal RCA stenting in August 2019. The patient is hypertensive and is maintained on triamterene/hydrochlorothiazide 75/50 mg daily, lisinopril 10 mg daily. He is also hyperlipidemic and is maintained on Crestor 10 mg daily. REVIEW OF SYSTEMS: CONSTITUTIONAL: Fatigue, tiredness, but not fever or chills or significant body weight changes. HEENT: Negative for sore throat, sinus pain, ear drainage. PULMONARY: Occasional shortness of breath and cough, but no hemoptysis. CARDIAC: Negative for chest pain, palpitations, syncope or presyncope. GASTROINTESTINAL: Negative for abdominal pain, nausea, vomiting or changes in bowel movement frequency. NEUROLOGY: Negative for loss of consciousness, seizure activity, frequent severe headaches. [facility] [address] [place] [address] CONSULTATION Name: SUNG PEARCE Room #: 512-P [facility] IN M.R.#: [id number] Admission: 10/11/19 Attend Phys: Marcin Bowen MD Discharge: Date of : 57 Report #: [id number] SKIN: Negative for rash, ulceration, discoloration or other major changes. PSYCHIATRIC: Negative for hallucinations, depression or delusions. Otherwise, review of systems noncontributory other than those mentioned in HPI. PAST MEDICAL HISTORY: 1. Noted for CAD, status post RCA stenting in August 2019. 2. Peripheral arterial disease, status post multiple vascular interventions as noted in HPI. 3. Hypertension. 4. Hyperlipidemia. 5. Anemia. 6. BPH. CURRENT MEDICATIONS: Include: 1. Albuterol. 2. Aspirin 81 mg daily. 3. Atorvastatin 40 mg daily. 4. Lisinopril 30 mg daily. 5. Loratadine 10 mg daily. 6. Triamterene/hydrochlorothiazide 2 tablets daily. 7. Bupropion 100 mg t.i.d. 8. Gabapentin 800 mg t.i.d. 9. Lantus insulin 50 units at bedtime. 10. Metformin 1000 mg at bedtime. 11. Olanzapine 10 mg at bedtime. 12. Tamsulosin 0.4 mg b.i.d. ALLERGIES: IBUPROFEN. FAMILY HISTORY: Noncontributory. SOCIAL HISTORY: The patient denies use of tobacco, alcohol or illicit drugs. PHYSICAL EXAMINATION: GENERAL: Pleasant male patient who is not in apparent pain or distress. VITAL SIGNS: Blood pressure is 107/71 mmHg, heart rate is 104 beats per minute, respirations 20 per minute, temperature 36.9 degrees Celsius. CONSTITUTIONAL: The patient is sitting upright in his reclining chair, appears comfortable, not in apparent distress. HEENT: Anicteric sclerae. Intact extraocular motions. NECK: Supple, without JVD, carotid bruits or lymphadenopathy. I do not appreciate thyromegaly. CHEST: Noted for moderate air entry bilaterally with scattered rales and rhonchi, but [place] [address] CONSULTATION Name: SUNG PEARCE Room #: 512-P ADM IN M.R.#: [id number] Admission: 10/11/19 Attend Phys: Marcin Bowen MD Discharge: Date of : 57 Report #: [id number] HEART: Regular rate and rhythm without murmurs or gallops. ABDOMEN: Soft, lax. No guarding. Active bowel sounds. EXTREMITIES: Lower extremity exam, both feet and ankles are wrapped in surgical dressing. Trace edema. NEUROLOGIC: Awake, alert and oriented to time, place and person. The remainder of his examination is largely nonfocal. PSYCHIATRIC: Pleasant, interactive. Normal thought process. Normal mood and affect. LABORATORY DATA: Blood glucose data over the past 48 hours have shown a consistent range of 151-217 mg/dL. Sodium 138, potassium 3.8, chloride 103, CO2 of 27, anion gap 8, BUN 10, creatinine 0.9, glucose 153. Osmolarity 294, AST 34, total bilirubin 0.4, calcium 8.1, magnesium 1.8, alkaline phosphatase 44, ALT 45, total protein 4.8, albumin 2.5, EGFR 103. BNP 8. White blood count 4.1, hemoglobin 8.1, hematocrit 23.3, platelets 197. Hemoglobin A1c 12.1%. ASSESSMENT AND PLAN: 1. Type 2 diabetes mellitus. Interestingly, the patient insisted and maintained that he had never been told he had type 2 diabetes mellitus in the past. However, having reviewed his medical records at length, it appears that he has been actively taking a long-acting insulin and metformin at home. Additionally, his hemoglobin A1c of 12.1%, supports the notion that he has had longstanding poorly controlled hyperglycemia. Based on the patient's blood glucose levels now and given his permissive renal function, I would like to drop the current dose of Lantus from 50 to 44 units at bedtime, change metformin to XR 750 mg b.i.d., and add Tradjenta 5 mg q.a.m. In the meantime, I will continue to work with the Humalog supplemental scale for support as needed and maintain blood glucose monitoring before meals and at bedtime. Further therapeutic adjustments will be made as needed. 2. Hypertension. The patient's level of blood pressure control is adequate, he is to continue the current regimen. 3. Hyperlipidemia. The patient is maintained on rosuvastatin, but he has been placed on atorvastatin 40 mg daily and is tolerating it well. He is to continue with the same. 4. Diabetic neuropathy. The patient is maintained on high dose gabapentin therapy and seems to be under adequate control with this regimen, he is to continue with the same. I have reviewed the patient's clinical care notes, laboratory data, and other pertinent clinical information at length for over 35 minutes in addition to my [id number] time with the patient. [address] [address] CONSULTATION Name: SUNG PEARCE Room #: 512-P [facility] IN .R.#: [id number] Admission: 10/11/19 Attend Phys: Marcin Bowen MD Discharge: Date of : 57 Report #: [id number] I certainly appreciate this consultation by Dr. Bowen. <ELECTRONICALLY SIGNED> By: Jose Griggs MD 10/15/19 1234 1120 1402 Jose Griggs MD /nt
--- NOTE | 2019-10-15 16:31 | NUR ---
ASSUMED CARE AT 0700. REPORTS DIDN'T SLEPT GOOD LAST NIGHT D/T WOUND VAC LEAKING AND MAKING NOISE. PT WAS TIRED THIS AM. CALLED DR. BILLY OFFICE, HIS PA CAME AND FIXED WOUND VAC. ALSO NOTIFIED RT TO LOOK AND HELPED PT TO SET UP HIS CPAP AT NIGHT. WILL GIVE REPORT TO NIGHT NURSE TO CONTINUE TO MONITOR. PT GOALS TODAY IS TO PARTICIPATE WITH THERAPY AND TAKE NAPS IN BETWEEN, HE SAID HE TIRED SINCE DIDN'T SLEEP LAST NIGHT. SHIFT NOTE: PATIENT IS ALERT AND ORIENTED X3, BUT FORGETFUL AT TIMES. REASSESSMENT PER CHART. LUNGS ARE CLEAR AND DIMINISHED. SAT ADEQUATE ON R. B/P LOW PT ON HTCZ, LISINOPRIL. MORNING MEDS GIVEN ORDERED SINCE PT DOESN'T HAVE SYMPTOM FOR LOW B/P BUT NOTIFIED DR. LIZAMA TO REQUEST PARAMETER ON THIS HTN MEDS. RECEIVED ORDER TO DC THESE. NEW ORDER FOR METOPROLOL. ABD IS SOFT WITH BSX4. CONTINUES TO TAKE MIRALAX AND SENNA ORDERED. HAD BM EARLIER TODAY. PT UP WITH ASSIST, GB AND A CANE. C/O PAIN 9/10 IN HIS LEFT LEG R/T FEM-POP BYPASS AND PAIN DOWN TO 6/10 TOLERATE SCALE. NOTICED OLD DRY SORE ON LITTLE TOE ON LEFT LEG. REGINO, INSPECTOR POISING SAID NO NEED FOR WOUND CARE FOLLOW UP AT THIS MOMENT. ENCOURAGED PT TO ELEVATE LEGS ON PILLOW. NOTIFIED [facility] FOR LIDOCAIN TOPICAL ON BOTH FOOT AND APPLIED FOR PAIN. PT SAID IT HELPS. FALL PRECAUTION IN PLACE, PT USES CALL LIGHT APPROPRIATELY. CONTINUES TO PROGRESS TOWARDS D/C GOALS.
--- NOTE | 2019-10-15 16:36 | NUR ---
FAXED CLINICAL UPDATE TO [facility] SPOKE WITH BARBARA IN INTAKE SHE RECEIVED UPDATE ANTICIPATE DC 10/22. DP TO FOLLOW.
[2019-10-15 19:24] VITALS: BP 100/60
--- NOTE | 2019-10-16 02:17 | NUR ---
ASSUMED CARE OF PT AT 1930 ON 10/15/19. PT IS A&OX3 WITH REPORTED FORGETFULNESS. IS ON ROOM AIR. USES CPAP AT HS. RT FOLLOWING. REPORTS PAIN IN LLE THAT IS BEING MANAGED WITH PAIN MEDS & COLD THERAPY. WOUND VAC INTACT. EDEMA PRESENT. EXTREMITY ELEVATED. PT IS ABLE TO MOVE SELF IN BED. CALLS FOR ASSISTANCE NEEDED. USES CALL LIGHT APPROPRIATELY. IS UP WITH 1 ASSIST, GB, CANE. FALL PRECAUTIONS & HOURLY ROUNDING MAINTAINED THIS SHIFT. LABS & VITALS REVIEWED. PT REFUSED TO CHANGE CLOTHES & INSISTED ON WEARING HIS CLOTHES TO BED. HAS ACCU CHECKS ACHS WITH MOD DOSE SS. PT IS CURRENTLY SLEEPING. CALL LIGHT IS WITHIN REACH. WILL CONTINUE TO MONITOR.
[2019-10-16 08:00] VITALS: BP 119/67
[2019-10-16 10:23] LABS: HEMATOCRIT 29.4 % (42.0-52.0); MCH 27.6 pg (26.0-34.0); MCHC 34.2 g/dL (28.0-37.0); MCV 80.7 fL (80.0-100.0); RBC 3.64 mil/uL (4.50-6.00); RDW 16.3 % (10.5-14.5); WBC 6.5 thou/uL (4.0-11.0)
[2019-10-16 10:31] LABS: CALCIUM 8.9 mg/dL (8.5-10.1); CREATININE 1.3 mg/dL (0.7-1.3); POTASSIUM 4.4 mmol/L (3.5-5.1)
--- NOTE | 2019-10-16 13:21 | NUR ---
[facility] notified that pt's home cpap is not working and they are the provider. They have talked with the pt and switched out his home cpap for a new one.
--- NOTE | 2019-10-16 15:39 | NUR ---
ASSUMED CARES AT 0700. PT ALERT AND ORIENTED*4 BUT FORGETFUL, MILD CONFUSION. C/O PAIN ON LLE AND TOES OF BLE. PAIN MEDICATION ADMINISTERED NEEDED. LLE WOUNDVAC REMAINS DRY AND INTACT, WOUNDVAC IS PATENT. LLE EDEMA, PEDAL PULSES WEAK. ABDOMEN FIRM AND DISTENDED, BS ACTIVE*4, SMALL BM TODAY. PT UP WITH 1 MIN ASSIST, GB AND WALKER/CANE AND TOLERATED WELL. Q1H VISUAL CHECKS. CALL LIGHT WITHIN REACH. FALL PRECAUTIONS IN PLACE
[2019-10-16 20:00] VITALS: BP 112/55
--- NOTE | 2019-10-17 02:00 | NUR ---
APPRECIATES CPAP AND PAIN MED AT HS, INCONTINENT OF URINE AT THIS TIME SUDDENLY WHILE SLEEPING. WOUND VAC INTACT
[2019-10-17 08:00] VITALS: BP 114/69
--- NOTE | 2019-10-17 16:01 | NUR ---
ASSUMED CARES AT 0700. PT AWAKE, ORIENTED*2-3, FORGETFUL AND CONFUSED AT TIMES. C/O TOE PAIN IN BLE. LIDOCAINE CREAM APPLIED NEEDED. WOUND IN LLE REMAINS DRY AND INTACT, WOUND VAC IS INTACT AND PATENT. PT PARTICIPATED IN ALL THERAPIES AND TOLERATED WELL. Q1H VISUAL CHECKS. CALL LIGHT WITHIN REACH. SEIZURE PRECAUTIONS IN PLACE. FALL PRECAUTIONS IN PLACE
[2019-10-17 19:44] VITALS: BP 106/64
--- NOTE | 2019-10-18 02:24 | NUR ---
APPRECIATES LIDOCAINE TO LEFT FOOT AT HS. TRAZADONE SCHEDULED, PATIENT ASLEEP NOW WITH CPAP ON. WOUND VAC INTACT. UP TO TOILET WITH WALKER AND ASSIST TO MANAGE WOUND VAC AND ITS TUBING.
[2019-10-18 08:21] VITALS: BP 113/72
--- NOTE | 2019-10-18 08:30 | NUR ---
ASSUMED CARES AT 0700. REPORTS SLEPT BETTER WITH CPAP LAST NIGHT. PT AWAKE, ORIENTED X3, FORGETFUL AND CONFUSED AT TIMES. C/O TOE PAIN IN BLE. LIDOCAINE CREAM APPLIED NEEDED. WOUND IN LLE REMAINS DRY AND INTACT, WOUND VAC IS INTACT AND PATENT. RATES PAIN 7/10, PRN HYDROCODONE AND TYLENOL PRN PER REQUEST. OFFERED SUPPORTIVE CARE. ENCOURAGED PT VOICE HIS NEEDS. REASSESSMENT PER CHART. LAST BM WAS YESTERDAY. BS 92 THIS AM. NO INSULIN GIVEN. HYPERGLYCEMIA PO AND MORNING MEDS GIVEN ORDERED. PT C/O ITCHING ON GROIN. REQUEST FOR CLOTRIOMAZOLE FOR ITCHING AND ASPERENE CREAM FOR HIS ARTHIRITS. WILL OBTAIN ORDERS FROM [facility]. PT UP IN WALKER. HIS GOALS IS TO PARTICIPATE ALL THERAPIES TODAY. Q1H VISUAL CHECKS. CALL LIGHT WITHIN REACH. FALL PRECAUTIONS IN PLACE.WILL CONTINUE TO MONITOR.
--- NOTE | 2019-10-18 10:20 | NUR ---
cm notified by physical therapy that pt reported that is walker is damaged and does not function properly and he will need fww for dc next week. cm sent referral for f[facility] to [facility]. cm notified by [facility] that pt only med A, has no coverage for dme rt has no part b.
[2019-10-18 20:05] VITALS: BP 119/74
--- NOTE | 2019-10-19 00:54 | NUR ---
PT ASSESSMENT COMPLETED AND VSS. MEDS GIVEN ORDERED AND WELL TOLERATED. FALL PRECAUTIONS IN PLACE. WOUND VAC INTACT AND WNL. ELEVATED LEFT LEG ON PILLOWS. UP TO THE BATHROOM WITH ASST/GAIT/WALKER/WOUND VAC. PT VOIDING LARGE AMOUNT OF YELLOW URINE. CLEANED UP FOR BED. FUNGAL CREAM APPLIED TO GROIN AREA. LIDOCAINE APPLIED ORDERED. PRN PAIN MEDICATION WORKING WELL. CPAP WITH 02 SAT WNL. INSULIN GIVEN ORDERED. WILL CONTINUE TO MONITOR FREQUENTLY.
[2019-10-19 08:00] VITALS: BP 109/76
--- NOTE | 2019-10-19 13:48 | NUR ---
ASSUMED CARES AT 0700. PT ORIENTED TO PERSON AND PLACE ONLY. CONFUSED AND FORGETFUL. C/O LLE, ROYER SHOULDER AND TOES PAIN, HYDROCODONE AND LIDOCAINE CREAM ADMINISTERED NEEDED. LLE REMAINS SWOLLEN, EXTREMITY ELEVATED. WOUNDVAC ON LLE REMAINS DRY AND INTACT. GROIN AREA CLEANED AND ANTIFUNGAL CREAM APPLIED. PT CALLING MULTIPLE TIMES AND AT TIMES FORGETING WHAT HE CALLED ABOUT. UP WITH MIN ASSIST, GB AND WALKER. FREQ. VISUAL CHECKS. CALL LIGHT WITHIN REACH. FALL PRECAUTIONS IN PLACE
[2019-10-19 19:24] VITALS: BP 148/65
--- NOTE | 2019-10-19 23:50 | NUR ---
PT ASSESSMENT COMPLETED AND VSS. MEDS GIVEN ORDERED AND WELL TOLERATED. PRN PAIN MEDICATION WORKING WELL. LIDOCAINE APPLIED AND HELPFUL. UP TO THE BATHROOM WITH ASST/GAIT/WALKER/WOUND VAC. LARGE BM AT HS AND VOIDING MODERATE AMOUNT. STEADY. DID NEED TO REMIND PT TO WATCH OUT FOR HIS WOUND VAC TUBING WHEN WALKING. FUNGAL CREAM APPLIED TO GROIN AREA. ELEVATED LEFT LEG ON PILLOWS. WOUND VAC DRESSING DRY/INTACT/FUNCTIONING WELL. CPAP WITH CONT 02 SAT MONITOR WNL. SLEEPING WELL. WILL CONTINUE TO MONITOR FREQUENTLY.
[2019-10-20 10:06] VITALS: BP 116/75
--- NOTE | 2019-10-20 14:30 | NUR ---
ASSUMED CARE OF PT AT 0700. PT IS A&OX3, FORGETFUL, VITAL SIGNS ARE STABLE. PT REPORTS PAIN TO BILATERAL FEET, MANAGED WITH PO MEDICATIONS AND LIDOCAINE CREAM. LEFT LEG WOUND VAC INTACT AND DRAINING APPROPRIATELY. REFUSED SENNA DUE TO MULTIPLE STOOLS. FALL PRECAUTIONS IN PLACE AND NURSING WILL CONTINUE TO MONITOR.
[2019-10-20 20:20] VITALS: BP 134/78
--- NOTE | 2019-10-20 23:27 | NUR ---
ASSUMED CARE OF PT AT 1915. PT IS A&OX4 WITH FORGETFULNESS. IS ON ROOM AIR BUT WEARS CPAP AT HS. IS STABLE. REPORTS PAIN IN LEFT FOOT. PAIN MEDS & THERAPUETIC TECHNIQUES USED. EDEMA PRESENT. WOUND VAC INTACT. LIMB ELEVATED. PT IS UP WITH 1 ASSIST, GB, WALKER TO BATHROOM. FALL PRECAUTIONS & HOURLY ROUNDING CONTINUED. PT NOT FAR FROM NURSE STATION. LABS REVIEWED. VITALS ASSESSED. PT WANTS TO SPEAK WITH THE DOCTOR REGARDING TINGLING IN LEFT FOOT. PT STATED, "I'VE BEEN TAKEN GABAPENTIN FOR A LONG TIME & IT'S NOT WORKING. THEY INCREASED THE DOSE & THAT SEEM TO NOT HELP STILL". PT WEARS CPAP AT HS. HAS ACCU CHECKS ACHS WITH LANTUS & MOD DOSE SS LISPRO. PT IS CURRENTLY IN BED RESTING, WATCHING TV. CALL LIGHT WITHIN REACH. WILL CONTINUE TO MONITOR.
[2019-10-21 04:40] LABS: ABSOLUTE NEUTROPHILS 4.3 thou/uL (1.4-8.2); BASOPHILS 0.6 % (0.0-2.0); EOSINOPHILS 4.9 % (0.0-3.0); HEMOGLOBIN 9.8 gm/dL (14.0-18.0); LYMPHOCYTES 24.1 % (24.0-44.0); MCH 27.4 pg (26.0-34.0); MCHC 33.9 g/dL (28.0-37.0); MCV 80.9 fL (80.0-100.0); MONOCYTES 5.9 % (1.0-8.0); PLATELET COUNT 277 thou/uL (150-400); POLYS 64.5 % (36.0-66.0); RBC 3.59 mil/uL (4.50-6.00); RDW 16.9 % (10.5-14.5); WBC 6.7 thou/uL (4.0-11.0)
[2019-10-21 05:01] LABS: CALCIUM 8.9 mg/dL (8.5-10.1); CREATININE 1.1 mg/dL (0.7-1.3); MAGNESIUM 1.9 mg/dL (1.8-2.4); POTASSIUM 4.1 mmol/L (3.5-5.1)
[2019-10-21 08:06] VITALS: BP 169/95
--- NOTE | 2019-10-21 16:00 | NUR ---
ASSUMED CARE OF PT AT 0700. PT IS A&OX4 AND VITAL SIGNS ARE STABLE. PT REPORTS PAIN TO BLE, MANAGED WITH PO MEDICATIONS AND OINTMENT. WOUND VAC TO LLE DRESSING INTACT AND DRAINING APPROPRIATELY. ACCU CHECKS ACHS AND MANAGED WITH PO MEDICATIONS AND INSULIN PER ORDERS. PT REPORTS INCREASED NEUROPATHY IN BLE, DISCUSSED WITH PROVIDER THIS SHIFT. FALL PRECAUTIONS IN PLACE AND NURSING WILL CONTINUE TO MONITOR.
[2019-10-21 20:00] VITALS: BP 140/84
--- NOTE | 2019-10-22 01:59 | NUR ---
assumed care at approx 1900 evening 10/20. pt sitting up in recliner at change of shift watching tv, alert and oriented x4. pt cooperative and somewhat anxious. pt up to bathroom to void in toilet with pt having stress incontinence. pt with small amt blood on leg stating he thinks he scratched his groin area and caused some irritation. wound vac in place to left leg intact and functioning properly. pt took hs meds with water tolerating well. pt appears to be sleeping soundly with hourly rounding checks. bed alarm on and call light in reach. will continue to monitor.
[2019-10-22 08:40] VITALS: BP 147/77
[2019-10-22 12:34] VITALS: BP 147/77
--- NOTE | 2019-10-22 12:40 | NUR ---
team meeting. recommendation cont dc 10/23/2019 [facility] ( pt, ot, st, nursing). will need to talk with on getting him fww, paula delivered new/fixed cpap to pt here. no driving, to assist with bills and pills.
--- NOTE | 2019-10-22 14:55 | NUR ---
ASSUMED CARE OF PT AT 0700. PT IS A&OX3, FORGETFUL, VITAL SIGNS ARE STABLE. PT REPORTS PAIN TO LOWER EXTREMITIES, MANAGED WITH PO MEDICAITONS. WOUND VAC TO LLE DRAINING APPROPRIATELY. ACCU CHECKS ACHS AND MANAGED WITH PO MEDICATIONS AND INSULIN PER ORDERS. DIABETES EDUCATION PROVIDED TO PT ABOUT INSULIN ADMINISTRATION, MEDICATIONS, S/S OF HYPOGLYCEMIA AND HYPERGLYCEMIA, DIABETIC EMERGENCIES AND WHEN TO SEEK MEDICAL ATTENTION WELL DIABETIC DIET . PT ABLE TO DEMONSTATE INJECTION AND TEACH BACK MOST INFORMATION, WILL REQUIRE REINFORCEMENT AT HOME. FALL PRECAUTINS IN PLACE AND NURSING WILL CONTINUE TO MONITOR.
[2019-10-22 19:18] VITALS: BP 127/64
--- NOTE | 2019-10-23 03:57 | NUR ---
assumed care at approx 1900 evening 10/21. pt alert and oriented x4, appropriate and cooperative, somewhat impulsive. wound vac to left leg with dressing intact. pt stated he had a good day with therapy and is looking forward to co. pt assisted up to bathroom. pt wore his own cpap machine until just now when he wanted to take it off. pt now back to bed. bed alarm on AND CALL LIGHT IN REACH. WILL CONTINUE TO MONITOR.
[2019-10-23 07:35] VITALS: BP 122/74
[2019-10-23] MEDS ORDERED: GLUCOPHAGE XR750 MG PO (09:20)
[2019-10-23] MEDS ORDERED: SENNA-TIME S T1 EACH PO (09:20)
[2019-10-23] MEDS ORDERED: MIRALAX17 GM PO (09:20)
[2019-10-23] MEDS ORDERED: TOPROL XL25 MG PO (09:20)
[2019-10-23] MEDS ORDERED: CLOTRIMAZOLE-BE15 GM TOP (09:20)
[2019-10-23] MEDS ORDERED: FLEXERIL PO (09:20)
[2019-10-23] MEDS ORDERED: TRADJENTA5 MG PO (09:20)
[2019-10-23] MEDS ORDERED: EFFIENT10 MG PO (09:22)
[2019-10-23] MEDS ORDERED: TRAZODONE 150150 M1 PO (09:22)
[2019-10-23] MEDS ORDERED: FLOMAX0.4 MG PO (09:22)
[2019-10-23] MEDS ORDERED: NEURONTIN 400400 M1 PO (09:22)
--- NOTE | 2019-10-23 10:16 | NUR ---
PT DISCHARGING TODAY TO HOME WITH [facility] FAXED DC ORDERS/SUMMARY RECEIVED CONFIRMATION AND SPOKE WITH BARBARA IN INTAKE SHE WILL NOTIFY PT TIME OF VISITS.
[2019-10-23 10:35] VITALS: BP 147/77
[2019-10-23 11:13] VITALS: BP 147/77
[2019-10-23 11:33] VITALS: BP 147/77
--- NOTE | 2019-10-23 15:06 | NUR ---
ASSUMED CARE OF PT AT 0700. PT IS A&OX4 AND VITAL SIGNS ARE STABLE. PT DENIES PAIN. ORDERS FOR DISCHARGE TODAY. MEDICATIONS REVIEWED AND SCRIPTS SENT TO PREFERRED PHARMACY BY PROVIDERS. REVIEWED DISCHARGE EDUCATION AND INSTRUCTIONS INCLUDING F/U APPOINTMENTS, MEDICATIONS, WOUND CARE, AND DIABETES CARE AND MANAGEMENT WITH PATIENT AND . ACCU CHECKS ACHS AND MANAGED WITH PO MEDICATIONS AND INSULIN PER ORDERS. OSMANI FRENCH ON UNIT THIS AM AND REMOVED WOUND VAC, ORDERS TO LEAVE OPEN TO AIR WITH GALO IN PLACE. F/U APPOINTMENT DISCUSSED WITH PT AND INFORMATION EXPRESSED TO ON DISCHARGE. BELONGINGS REMOVED FROM ROOM AT TIME OF DISCHARGE. PT ASSISTED TO ED FOR DISCHARGE BY NURSING STAFF. PT SUPERVISION ASSISTANCE TO TRANSFER INTO CAR. AND PATIENT DENY QUESTIONS AT TIME OF DISCHARGE, SIGNED DISCHARGE PAPERS.
--- NOTE | 2019-10-23 15:25 | NUR ---
Pt dc'd to home today. HH finalized with [facility] liason did call pt's back and his secondary ins may provide some coverage for a new FWW if needed. Pt and have decided to use the older one that he has at home. No other needs noted.
--- NOTE | 2019-10-25 17:06 | H ---
[facility] [place] [address] HISTORY AND PHYSICAL Name: SUNG PEARCE Room #: 512-P [facility] M.R.#: [id number] Admission: 10/11/19 Attend Phys: Marcin Bowen MD Discharge: 10/23/19 Date of : 57 Report #: [id number] THIS REPORT FOR: cc: Rafiq Walker MD,Rafiq Bowen,Marcin Fontaine MD ~ CC: Marcin Walker DATE OF SERVICE: 10/11/2019 HISTORY AND PHYSICAL AND POSTADMISSION PHYSICIAN EVALUATION HISTORY OF PRESENT ILLNESS: The patient is a 64-year-old -Malaysian male, who was admitted for acute in-hospital inpatient rehabilitation. The patient was originally admitted to [facility] on 10/08/2019 with his severe peripheral arterial disease. He ended up undergoing a left femoral to below knee popliteal artery bypass with reversed autogenous saphenous vein and intraoperative arteriogram. He has a history of coronary artery disease with prior PCI to the right coronary artery and has been on aspirin, Effient, and statin. He also has a history of type 2 diabetes mellitus with elevated hemoglobin A1c. The patient has a wound VAC to the left lower extremity. He has decreased functional mobility and ADLs along with cognitive concerns and has been admitted for acute in-hospital inpatient rehabilitation. PAST MEDICAL HISTORY: Includes coronary artery disease, prior stent placement to right coronary artery, peripheral arterial disease, hypertension, degenerative arthritis, obstructive sleep apnea, and diabetes mellitus. PAST SURGICAL HISTORY: Stent placement, bilateral knee replacement surgery. FAMILY HISTORY: Includes heart disease. HABITS: No history of tobacco or alcohol abuse. MEDICATIONS: Please see the full medication listing. ALLERGIES: MOTRIN APPARENTLY CAUSES BLACK SPOTS ON SKIN. SOCIAL HISTORY: Premorbidly, he had been living at home with his . Used a cane or no device. Has an old walker from a previous knee surgery. He is independent with ADLs such as bathing his back as he can reach it. He is retired, 3 steps into the home, 4 inside. REVIEW OF SYSTEMS: Did not offer any current complaints of chest pain, shortness of breath or abdominal discomfort. [facility] [address] [place] [address] HISTORY AND PHYSICAL Name: SUNG PEARCE Room #: 512-P [facility] IN M.R.#: [id number] Admission: 10/11/19 Attend Phys: Marcin Bowen MD Discharge: 10/23/19 Date of : 57 Report #: [id number] PHYSICAL EXAMINATION: GENERAL: The patient was seen earlier, overweight, pleasant 64-year-old -Malaysian male, in no obvious distress. HEENT: Appeared to be benign. NEUROLOGIC: Cranial nerves are grossly intact. Facies are symmetric. CHEST: Sounded clear to auscultation. CARDIAC: Regular rate and rhythm. ABDOMEN: Obese, bowel sounds positive, nontender. GENITOURINARY AND RECTAL: Deferred. NEUROMUSCULOSKELETAL: He is alert, follows basic one-step commands. He has functional range of motion of both upper extremities without obvious focal weakness. In his lower extremities, he has the medial thigh dressing in place over the surgical site with wound VAC. He can move his toes. He does have some expected swelling over his left foot dorsum. Toes appeared well perfused and can wiggle and were warm. Right lower extremity functional range of motion without obvious focal weakness. DTRs are trace to 1. Foot and toes appeared warm. He has been min assist with basic transfers, was max assist per OT for toileting. ASSESSMENT: A 64-year-old male with the following problems: 1. Medical complexity with generalized debilitation. 2. Peripheral arterial disease, status post fem-pop bypass on 10/08/2019. 3. Coronary artery disease, status post stenting on 09/20/2019. He did have some fevers of unknown etiology, which have been monitored. 4. Diabetes mellitus type 2, uncontrolled. Hemoglobin A1c was previously 12.1. 5. Acute blood loss anemia. 6. Hypertension. 7. Hyperlipidemia. 8. Exogenous obesity. PLAN: The patient has been admitted for acute in-hospital inpatient rehabilitation. From a postadmission physician evaluation perspective, there are no relevant changes since the preadmission screening. Please see the above review of prior and current medical and functional conditions and comorbidities. Please see the patient's previous and current functional status. As far as risk of complications, the patient has multiple medical comorbidities as noted above. Initial plan of care involves the interdisciplinary inpatient rehabilitation program. Measurable functional goals would be for the patient to become modified independent with transfers, mobility and ADLs as well as to be assessed and improve regarding overall cognition. Prognosis is reasonably good with estimated length of stay probably at least 5-10 days depending progress. Potential barriers would include the patient's multiple medical comorbidities and decreased functional status. The patient meets diagnostic criteria for an acute in-hospital inpatient [facility] [address] [place] [address] HISTORY AND PHYSICAL Name: SUNG PEARCE Room #: 037-P [facility] IN M.R.#: [id number] Admission: 10/11/19 Attend Phys: Marcin Bowen MD Discharge: 10/23/19 Date of : 57 Report #: [id number] rehabilitation stay. He meets the medical necessity criteria. He does have the tolerance for therapies and has appropriate discharge goals back to the home setting. <ELECTRONICALLY SIGNED> By: Marcin Bowen MD 10/25/19 1706 [id number] Marcin Bowen MD /nt
--- NOTE | 2019-10-25 17:09 | PLAN ---
[facility] [place] [address] [place] [address] REHAB UNIT PLAN OF CARE Name: SUNG PEARCE Room #: 512-P [facility] IN M.R.#: [id number] Admission: 10/11/19 Attend Phys: Marcin Bowen MD Discharge: 10/23/19 Date of : 57 Report #: [id number] THIS REPORT FOR: //name// CC: Marcin Walker DATE OF SERVICE: 10/14/2019 PROGRESS NOTE/OVERALL PLAN OF CARE SUBJECTIVE: The patient is seen back today in followup. He is in no distress. Last recorded temperature 98.4, pulse 104, respirations 20, blood pressure 107/71. Left medial thigh and leg dressing is in place. No focal calf swelling. He is working in therapies with transfers, contact guard assistance. Gait, contact guard assistance 150 feet with a standard cane. In occupational therapy, lower body dressing is mod assist. Speech therapy is noted moderate cognitive deficits. ASSESSMENT: 1. Medical complexity with generalized debilitation. 2. Peripheral arterial disease, status post fem-pop bypass. 3. Coronary artery disease, status post stenting, 09/20/2019. 4. Diabetes mellitus type 2, previously uncontrolled. 5. Acute blood loss anemia. 6. Hypertension. 7. Hyperlipidemia. 8. Exogenous obesity. PLAN: The overall plan of care is based on the preadmission screen, post-admission physician evaluation and information garnered from therapy assessments. 1. Estimated length of stay is probably around 5 days, may be longer as warranted. 2. Medical prognosis is reasonably good. 3. Anticipated interventions includes the interdisciplinary acute inpatient rehabilitation program. 4. Anticipated functional outcomes would be for the patient to become modified independent with transfers, mobility, ADLs as well as improvement in overall cognition, so that he can return back to the home setting. 5. Discharge destination would be back home where he lives with his . 6. Expected therapy by discipline includes PT, OT and speech 1 hour per day each five days a week throughout the duration of the acute inpatient rehabilitation stay. Hopefully, we can decrease some of the speech therapy in favor of increasing PT and OT as he further improves. <ELECTRONICALLY SIGNED> By: Marcin Bowen MD 10/25/19 1709 [id number] Marcin Bowen MD /[facility]
== END 2019-10-23 12:44 | disposition home health service (06) | DRG 948 ==
PROVIDERS: Nurse Practitioner; Nurse Practitioner Adult Health; Nurse Practitioner Family; ADMIT Physical Medicine & Rehabilitation
PROC: 5A09357 Assistance with Respiratory Ventilation, Less than 24 Consecutive Hours, Continuous Positive Airway Pressure (ICD-10-PCS; principal; 2019-10-12)
PROC: 5A09457 Assistance with Respiratory Ventilation, 24-96 Consecutive Hours, Continuous Positive Airway Pressure (ICD-10-PCS; 2019-10-16)
PROC: 5A09357 Assistance with Respiratory Ventilation, Less than 24 Consecutive Hours, Continuous Positive Airway Pressure (ICD-10-PCS; 2019-10-20)
PROC: 5A09357 Assistance with Respiratory Ventilation, Less than 24 Consecutive Hours, Continuous Positive Airway Pressure (ICD-10-PCS; 2019-10-22)
DX: R53.81 Other malaise (principal); D62 Acute posthemorrhagic anemia; E11.51 Type 2 diabetes mellitus with diabetic peripheral angiopathy without gangrene; I25.10 Atherosclerotic heart disease of native coronary artery without angina pectoris; I10 Essential (primary) hypertension; E78.5 Hyperlipidemia, unspecified; E66.09 Other obesity due to excess calories; G47.33 Obstructive sleep apnea (adult) (pediatric); M19.90 Unspecified osteoarthritis, unspecified site; R41.9 Unspecified symptoms and signs involving cognitive functions and awareness; F32.9 Major depressive disorder, single episode, unspecified; F41.9 Anxiety disorder, unspecified; N40.0 Benign prostatic hyperplasia without lower urinary tract symptoms; E11.40 Type 2 diabetes mellitus with diabetic neuropathy, unspecified; Z96.653 Presence of artificial knee joint, bilateral; E11.65 Type 2 diabetes mellitus with hyperglycemia; K59.00 Constipation, unspecified; I95.9 Hypotension, unspecified; Z88.6 Allergy status to analgesic agent; Z95.5 Presence of coronary angioplasty implant and graft; Z68.34 Body mass index [BMI] 34.0-34.9, adult; Z79.82 Long term (current) use of aspirin; Z79.899 Other long term (current) drug therapy; Z82.49 Family history of ischemic heart disease and other diseases of the circulatory system
CPT/HCPCS: 10112

== ENCOUNTER → 2019-12-25 | Outpatient (CLI) | payer BC ==
[~2019-12-25] MED LIST changes: +CLOTRIMAZOLE-BE15 GM TOP; +GLUCOPHAGE XR750 MG PO; +MIRALAX17 GM PO; +SENNA-TIME S T1 EACH PO; +TOPROL XL25 MG PO; +TRADJENTA5 MG PO
== END ==
LOC: SJCVCIMAG 05:43
PROVIDERS: ATTEND Nuclear Medicine Nuclear Cardiology
DX: I70.203 Unspecified atherosclerosis of native arteries of extremities, bilateral legs (principal); Z95.1 Presence of aortocoronary bypass graft

== ENCOUNTER → 2020-01-01 | Outpatient (CLI) | payer BC ==
[~2020-01-01] VITALS: Ht 180.3 cm; Wt 113.4 kg
[~2020-01-01] MED LIST changes: +GABAPENTIN800 M1 PO; +MELOXICAM15 MG PO; +PRINIVIL20 MG PO
[2020-01-01 09:27] LABS: HEMATOCRIT 41.2 % (42.0-52.0); HEMOGLOBIN 13.5 gm/dL (14.0-18.0); MCH 25.3 pg (26.0-34.0); MCHC 32.8 g/dL (28.0-37.0); RBC 5.35 mil/uL (4.50-6.00); RDW 19.7 % (10.5-14.5); WBC 5.1 thou/uL (4.0-11.0)
[2020-01-01 09:37] LABS: CALCIUM 8.5 mg/dL (8.5-10.1); CREATININE 1.2 mg/dL (0.7-1.3); POTASSIUM 4.6 mmol/L (3.5-5.1)
[2020-01-01 09:52] VITALS: BP 132/82
== END | disposition home or self-care (01) ==
LOC: CATH 07:54
PROVIDERS: ATTEND Nuclear Medicine Nuclear Cardiology
DX: I70.213 Atherosclerosis of native arteries of extremities with intermittent claudication, bilateral legs (principal); I70.1 Atherosclerosis of renal artery; I10 Essential (primary) hypertension; I25.10 Atherosclerotic heart disease of native coronary artery without angina pectoris; E11.9 Type 2 diabetes mellitus without complications; J45.909 Unspecified asthma, uncomplicated; F31.9 Bipolar disorder, unspecified; G47.30 Sleep apnea, unspecified; E78.5 Hyperlipidemia, unspecified; Z98.890 Other specified postprocedural states; Z79.899 Other long term (current) drug therapy; Z79.4 Long term (current) use of insulin; Z88.8 Allergy status to other drugs, medicaments and biological substances

== ENCOUNTER → 2020-01-06 | Outpatient (CLI) | payer BC ==
[~2020-01-06] VITALS: Ht 180.3 cm; Wt 113.4 kg
[2020-01-06 07:13] VITALS: BP 128/84
== END | disposition home or self-care (01) ==
LOC: CATH 06:45
PROVIDERS: ATTEND Nuclear Medicine Nuclear Cardiology
DX: I70.213 Atherosclerosis of native arteries of extremities with intermittent claudication, bilateral legs (principal); T82.856A Stenosis of peripheral vascular stent, initial encounter; I10 Essential (primary) hypertension; E11.9 Type 2 diabetes mellitus without complications; E78.5 Hyperlipidemia, unspecified; E78.00 Pure hypercholesterolemia, unspecified; J45.909 Unspecified asthma, uncomplicated; F31.9 Bipolar disorder, unspecified; G47.30 Sleep apnea, unspecified; Z98.890 Other specified postprocedural states; Z79.899 Other long term (current) drug therapy; Z79.4 Long term (current) use of insulin; Z96.653 Presence of artificial knee joint, bilateral

== ENCOUNTER → 2020-04-10 | Outpatient (CLI) | payer BC | LOC: SJCVCIMAG 10:35 | PROVIDERS: ATTEND Nuclear Medicine Nuclear Cardiology | DX: I65.23 Occlusion and stenosis of bilateral carotid arteries (principal); I70.203 Unspecified atherosclerosis of native arteries of extremities, bilateral legs; I10 Essential (primary) hypertension; Z95.1 Presence of aortocoronary bypass graft; Z95.828 Presence of other vascular implants and grafts; Z79.899 Other long term (current) drug therapy ==

== ENCOUNTER → 2020-07-21 | Outpatient (CLI) | payer BC | LOC: SJCVCIMAG 08:34 | PROVIDERS: ATTEND Nuclear Medicine Nuclear Cardiology | DX: I70.201 Unspecified atherosclerosis of native arteries of extremities, right leg (principal); Z95.828 Presence of other vascular implants and grafts ==

== ENCOUNTER 2020-07-23 10:57 | Observation (INO) | payer BC ==
[2020-07-23] VITALS (13 sets, daily range): BP systolic 122–151; BP diastolic 68–96
[~2020-07-23] VITALS: Ht 180.3 cm; Wt 114.3 kg
[2020-07-23 11:39] LABS: HEMATOCRIT 43.4 % (42.0-52.0); HEMOGLOBIN 14.4 gm/dL (14.0-18.0); MCH 27.4 pg (26.0-34.0); MCHC 33.1 g/dL (28.0-37.0); MCV 82.9 fL (80.0-100.0); RBC 5.24 mil/uL (4.50-6.00); RDW 17.1 % (10.5-14.5); WBC 8.3 thou/uL (4.0-11.0)
[2020-07-23 11:46] LABS: CALCIUM 8.3 mg/dL (8.5-10.1); CREATININE 1.3 mg/dL (0.7-1.3); POTASSIUM 3.9 mmol/L (3.5-5.1)
== END 2020-07-23 20:30 | disposition home or self-care (01) ==
LOC: CATH 10:57 → 2N 16:38
PROVIDERS: ADMIT Nuclear Medicine Nuclear Cardiology; ATTEND Nuclear Medicine Nuclear Cardiology
DX: I70.202 Unspecified atherosclerosis of native arteries of extremities, left leg (principal); R53.81 Other malaise; I25.10 Atherosclerotic heart disease of native coronary artery without angina pectoris; R50.9 Fever, unspecified; I10 Essential (primary) hypertension; E11.9 Type 2 diabetes mellitus without complications; I95.9 Hypotension, unspecified; F39 Unspecified mood [affective] disorder; R41.89 Other symptoms and signs involving cognitive functions and awareness; E78.5 Hyperlipidemia, unspecified; D50.9 Iron deficiency anemia, unspecified; Z79.4 Long term (current) use of insulin; Z79.899 Other long term (current) drug therapy

== ENCOUNTER → 2020-10-27 | Outpatient (CLI) | payer BC | LOC: SJCVCIMAG 06:46 | PROVIDERS: ATTEND Nuclear Medicine Nuclear Cardiology | DX: I70.203 Unspecified atherosclerosis of native arteries of extremities, bilateral legs (principal); F17.200 Nicotine dependence, unspecified, uncomplicated; Z95.820 Peripheral vascular angioplasty status with implants and grafts; Z95.1 Presence of aortocoronary bypass graft ==